=== PATIENT | female | born 1990 | race Caucasian/White ===

== ENCOUNTER → 2016-07-08 | Outpatient (CLI) | payer BC ==
[~2016-07-08] MED LIST: PRENTAB26 PO
== END | disposition home or self-care (01) ==
LOC: C.LABSPEC 17:23
PROVIDERS: ATTEND Obstetrics & Gynecology
DX: Z34.03 Encounter for supervision of normal first pregnancy, third trimester (principal)

== ENCOUNTER 2016-07-17 12:41 | Inpatient (IN) | payer BC ==
[~2016-07-17] VITALS: Ht 160 cm; Wt 90.5 kg
[2016-07-17] MEDS ORDERED: LACTATED RINGER'S 1000ML 1,000 ML IV PRN (14:17)
[2016-07-17] MEDS ORDERED: LACTATED RINGER'S 1000ML 1,000 ML IV SCH (14:17)
[2016-07-17 14:43] LABS: HEMATOCRIT 34.6 % (37-47); MEAN CELL VOLUME 85.4 fL (80-100); MEAN CORPUSCULAR HEMOGLOBIN 28.9 pg (25-34); MEAN CORPUSCULAR HGB CONC 33.8 g/dl (32-36); MEAN PLATELET VOLUME 9.7 fL (7.4-10.4); PLATELET COUNT 258 K/uL (130-400); RED BLOOD COUNT 4.05 M/uL (4.2-5.4); WHITE BLOOD COUNT 10.57 K/uL (4.8-10.8)
[2016-07-17] MEDS ORDERED: EpHEDrine SULFATE INJ 50 MG/ML AMP ONE (15:45)
[2016-07-17] MEDS ORDERED: FENTANYL 2MCG/ML ROPIV 1.25MG/ML 100ML BAG EPI ONE (15:45)
[2016-07-17] MEDS ORDERED: BUPIVACAINE 0.25% 30 ML VIAL ONE (15:45)
[2016-07-17] MEDS ORDERED: FENTANYL CITRATE INJ 50 MCG/1 ML 2 ML VIAL ONE (15:46)
[2016-07-17] MEDS ORDERED: LACTATED RINGER'S 1000ML 500 ML IV PRN (16:34)
[2016-07-17] MEDS ORDERED: FENTANYL 2MCG/ML ROPIV 1.25MG/ML 100ML BAG EPI PRN (16:45)
[2016-07-17] MEDS ORDERED: EpHEDrine SULFATE INJ 50 MG/ML AMP IV PRN (16:45)
[2016-07-17] MEDS ORDERED: NALOXONE HCL INJ 0.4 MG/1 ML VIAL/CARP IV PRN (16:45)
[2016-07-17 17:46] VITALS: Ht 160 cm; Wt 90.5 kg
[2016-07-17] MEDS ORDERED: ACETAMINOPHEN 325 MG TAB PO PRN (22:45)
[2016-07-17] MEDS ORDERED: OXYTOCIN 30 UNITS/500ML NSS IV PRN (22:45)
[2016-07-17] MEDS ORDERED: ACETAMINOPHEN/CODEINE 300/30MG TAB PO PRN (22:45)
[2016-07-17] MEDS ORDERED: BENZOCAINE 20% AER SPR 82.5 GM CAN EXT PRN (22:45)
[2016-07-17] MEDS ORDERED: LANOLIN OINT EXT PRN ×2 (22:45)
[2016-07-17] MEDS ORDERED: SUPERCREAM 0.870 % 15GM JAR EXT PRN (22:45)
[2016-07-18] VITALS (7 sets, daily range): BP systolic 116–142; BP diastolic 68–85; PULSE 82–99; TEMP 36.5–37.3; O2SAT 97
[2016-07-18] MEDS: IBUPROFEN 600 MG TAB PO PRN ×4 (00:33→18:20)
--- NOTE | 2016-07-18 04:34 | Anesthesia Procedure Note ---
Anesthesia Epidural Removal Nt Date & Time Jul 18, 2016 at 04:34 Vital Signs Pain Intensity: 1.0 Vital Signs Past 12 Hours Date Time Temp Pulse Resp B/P Pulse Ox O2 Delivery O2 Flow Rate FiO2 07/18/16 01:50 36.6 99 16 119/70 97 Room Air 07/18/16 01:50 97 Room Air Notes Mental Status: alert / awake / arousable, participated in evaluation Nausea / Vomiting: adequately controlled Pain: adequately controlled Airway Patency, RR, SpO2: stable & adequate BP & HR: stable & adequate Hydration State: stable & adequate Neuraxial Anesthesia: was administered Anesthetic Complications: no major complications apparent, pt satisfied with anesthetic care Epidural: removed without complications, with tip intact
--- NOTE | 2016-07-18 07:02 | Progress Note ---
Subjective Jul 18, 2016. Subjective conversation w/ patient, physical exam Ambulation: ambulating normally Voiding: no voiding problems Passing Gas: Yes Diet Tolerance: Regular Diet Lochia: Small Feeding Type: Breast Feeding Pain: vaginal discomfort (using ibuprofen) Review of Systems Constitutional: No chills, No fever Respiratory: No cough, No shortness of breath Cardiac: No chest pain, No palpitations Objective Vital Signs Date Time Temp Pulse Resp B/P Pulse Ox O2 Delivery O2 Flow Rate FiO2 07/18/16 05:00 36.5 82 16 125/68 97 Room Air 07/18/16 01:50 36.6 99 16 119/70 97 Room Air 07/18/16 01:50 97 Room Air Physical Exam General Appearance: WELL-APPEARING, NO APPARENT DISTRESS Respiratory/Chest: lungs clear, no respiratory distress Cardiovascular: regular rate, rhythm, no murmur Abdomen: non tender, soft Fundus: Firm, Non-Tender, Relation to Umbilicus (at umbilicus) Extremities: non-tender, no calf tenderness Laboratory Results Last 24 Hours Test 07/17/16 14:37 07/18/16 04:44 White Blood Count 10.57 K/uL Red Blood Count 4.05 M/uL Hemoglobin 11.7 g/dL Hematocrit 34.6 % Mean Corpuscular Volume 85.4 fL Mean Corpuscular Hemoglobin 28.9 pg Mean Corpuscular Hemoglobin Concent 33.8 g/dl RDW Standard Deviation 42.5 fL RDW Coefficient of Variation 13.8 % Platelet Count 258 K/uL Mean Platelet Volume 9.7 fL Assessment and Plan Post- Day#: 1 Continue Routine Care: Resident Physician Supervision Note: I interviewed and examined the patient. Discussed with Dr. Goldman and agree with findings and plan as documented in the note. Any exceptions or clarifications are listed here: [None] Documented By: Sadie Guzman s/p Day 1 - vital signs reviewed and wnl - HGB 11.7 yesterday - Blood: O-, GBS-, Rubella immune - Encourage ambulation, encourage breast feeding, and monitor lochia - Patient doing well clinically - CONTINUE ROUTINE POST CARE
--- NOTE | 2016-07-18 07:06 | DELIVERY SUMMARY ---
DATE OF OPERATION: 07/17/2016 The patient is a 26-year-old 1 para 0 white female EDC at 07/30/2016 who had presented with heavy bloody show and dilation of 4 cm after being evaluated at the officer for an elevated blood pressure. Blood pressure remained in the normal range but she had begun to contract in a regular pattern. She then progressed to 5 cm dilated and was admitted. She received epidural analgesia. Membranes were ruptured for clear fluid. She progressed to full dilation and pushed effectively over an intact perineum to deliver a viable male . Mouth and nasopharynx were suctioned on the perineum and the rest of the was delivered without difficulty and placed on the mother's abdomen for further attention and stimulation. Cord was then clamped and cut and the placenta was expressed intact with a 3-vessel cord. The required some extra stimulation and was placed on the baby bed for this to be done. There was then spontaneous crying and the was moving all four limbs. A first degree vaginal laceration was repaired with 3-0 chromic in the usual fashion. Bilateral labial abrasions were not bleeding and not repaired. Estimated blood loss was 300 cc. Mother and infant doing well after delivery. I attest to the content of the Intraoperative Record and any orders documented therein. Any exceptio ns are noted below.
[2016-07-18 07:14] LABS: HEMATOCRIT 27.9 % (37-47)
[2016-07-18] MEDS: DOCUSATE SODIUM 100 MG CAP PO SCH ×2 (08:39→20:21)
[2016-07-18] MEDS: PRENATAL VITAMIN TAB PO SCH (08:39)
[2016-07-18] MEDS: ACETAMINOPHEN/CODEINE 300/30MG TAB PO PRN ×2 (14:28→20:21)
[2016-07-18] MEDS ORDERED: BISACODYL 5 MG TABEC PO SCH (20:00)
--- NOTE | 2016-07-18 20:38 | Discharge Instructions ---
Discharge Instructions Date of Service Jul 18, 2016. Admission Reason for Admission: Check Bp Discharge Discharge Diagnosis / Problem: Spontaneous Vaginal Delivery Discharge Goals Goal(s): Routine recovery after delivery Medications Continue Dispensed Medications: supercream, dermaplast, tucks, lansinoh Activity Recommendations Activity Limitations: per Instructions/Follow-up section . Instructions / Follow-Up Instructions / Follow-Up ACTIVITY RECOMMENDATIONS: * Gradual return to full activity over the next 2-3 weeks. * No lifting - nothing heavier than baby over the next 2-3 weeks. * Do not engage in vigorous exercise, sexual activity or sports until cleared by your physician. * Do not drive or operate any motorized equipment until cleared by your physician. * You may shower/bathe daily. MEDICATIONS: For discomfort or pain, you may use Acetaminophen (Tylenol), Ibuprofen (Advil), or Naproxen (Aleve) following the package directions. For constipation you may use Colace following the package directions. BREAST CARE: If you are not breast feeding: * Wear a supportive bra 24 hours a day for one to two weeks. * Avoid stimulating your breasts and nipples as much as possible during the first few weeks after delivery. * When taking a shower, have the warm water hit your back, not breasts. * When your breasts feel full, apply ice packs. Usually three to four times a day helps ease the discomfort. * Take a mild pain medication (Tylenol / Motrin) when you are uncomfortable. If breast feeding: * Use breast milk to lubricate nipples. Lansinoh cream may be used for sore nipples. You do not need to remove cream prior to breast feeding. If using a different brand of cream, check the label for directions regarding removal of cream prior to nursing. * Wear a supportive bra. * If having problems with breasts or breast feeding, call a exchange underwriting consultant or your health care provider. EPISIOTOMY CARE: After delivery, if you have an episiotomy (stitches), the following steps will ease discomfort and aid healing. * For the first 24 hours after delivery, place ice packs next to your episiotomy to help reduce swelling. * After the first 24 hour-period, sitz baths, either portable or in the tub, are suggested. A shower with a shower arm sprayed over the episiotomy may be comforting. * Emperatriz care should be done after each voiding and bowel movement. Squirt warm water from a plastic bottle over the perineum (region of the body between the anus and urinary opening) and pat dry. * Use Dermoplast to ease discomfort. Shake container. [place] directly over the episiotomy. Place a Tucks on a clean sanitary pad next to your episiotomy. SPECIAL CARE INSTRUCTIONS: When you are discharged from the hospital, it is important for you to follow the instructions listed below: * During the first week at home, you should be able to care for yourself and your baby. In addition, the usual light household activities are encouraged. * Limit your activities to the way you feel. Do not try to clean the house or move furniture. Be sensible. * If you actively engage in sports and have done so up until the time of your delivery, you may resume these activities as soon as you feel able. This may take up to one month or even longer. Use good judgment. * Continue to take your vitamins for at least six weeks after the of your baby. * Your diet need not be limited unless you were on a special diet before your delivery. Breast-feeding mothers need around 2500 calories per day and at least 64-80 ounces of fluid per day (8 to 10 glasses). * You should eat foods from the four major food groups. Crash diets or fad diets are to be avoided. Eating lean meats, fresh fruits and vegetables, low-fat dairy products, high fiber foods and a regular exercise program, will help you get back to your pre- weight without putting your health at risk. * Constipation is sometimes a problem after delivery. Take a mild laxative as needed. If breast feeding, Milk of Magnesia is acceptable to use. You may use a suppository or Fleets enema if no episiotomy. * A daily shower or tub bath is suggested. Be sure to thoroughly and gently dry the perineum. * A bloody vaginal discharge will usually continue until around four weeks post . A small amount of bleeding may continue for as long as six weeks. Vaginal discharge changes from the bright red bleeding after delivery to pink then brownish and finally yellowish-pink before becoming white and disappearing. * Bleeding may increase with activity. Your first period may come in 4-8 weeks. If you are breast feeding, your period may be delayed even longer. * Esperance (sex) can begin whenever both you and your partner feel comfortable and do not have any form of genital infection. It is recommended that you wait at least six weeks for internal and external healing to occur. If you have questions, please talk to your health care practitioner. A condom should be used to prevent infection and . * Foreplay, gentle intercourse and lubrication is very important the first several times to prevent pain. A water-based lubricant such as K-Y jelly or Astroglide may be used. * If you have RH negative blood and your baby is RH positive, you will receive RHOGAM by injection prior to discharge. The nurse will give you a card to keep with you that has the date and place that you received RHOGAM after delivery. * During your care, you had a Rubella screen done to check for the presence of rubella antibodies in your blood. If your test was negative, you will receive a Rubella vaccine prior to discharge. This vaccine may cause a fever, soreness at the injection site and flu-like symptoms. If these symptoms persist, notify your health care practitioner. is not advised for one month after a Rubella vaccine. * Verbalizes understanding of car seat law as reviewed with patient nursing. * Car Seat hand-out given and reviewed with patient by nursing. * Shaken baby information reviewed with patient by nursing. Call you doctor if: * Heavy bleeding (saturating several pads an hour) or passing clots the size of your fist. * A fever >101 degrees F (38.3 degrees C) on two occasions four hours apart and /or chills. * Unusual pain in the pelvic or vaginal areas. * "Baby Blues" lasting longer than two weeks. If you have any questions or concerns, call your health care practitioner at . FOLLOW UP VISIT: * Please call the office at to schedule a 6 week examination. It is important you keep this appointment. It is important for you to make arrangements for either yearly or twice yearly check-ups thereafter. Current Hospital Diet Patient's current hospital diet: Regular OB Diet Discharge Diet Recommended Diet: Regular Diet Pending Studies Studies pending at discharge: no Medical Emergencies . Who to Call and When: Medical Emergencies: If at any time you feel your situation is an emergency, please call 911 immediately. . Non-Emergent Contact Non-Emergency issues call your: Primary Care Provider, Mounter Hand . . "Provider Documentation" section prepared by Khanh Goldman. VTE Core Measure Inpt VTE Proph given/why not?: Treatment not indicated
--- NOTE | 2016-07-19 07:01 | Progress Note ---
Subjective Jul 19, 2016. Subjective conversation w/ patient Ambulation: ambulating normally Voiding: no voiding problems Passing Gas: Yes Diet Tolerance: Regular Diet Lochia: Small Feeding Type: Breast Feeding Review of Systems Constitutional: No chills, No fever Respiratory: No cough, No shortness of breath Cardiac: No chest pain, No palpitations Objective Vital Signs Date Time Temp Pulse Resp B/P Pulse Ox O2 Delivery O2 Flow Rate FiO2 07/18/16 23:40 37.3 85 18 116/70 Room Air 07/18/16 23:40 Room Air 07/18/16 19:30 36.9 96 20 128/81 Room Air 07/18/16 19:30 97 Room Air 07/18/16 17:00 36.6 94 16 136/78 Room Air 07/18/16 16:00 Room Air 07/18/16 11:52 36.7 96 18 142/85 97 Room Air 07/18/16 07:30 Room Air 07/18/16 07:18 36.5 92 16 123/71 97 Room Air Physical Exam General Appearance: WELL-APPEARING, NO APPARENT DISTRESS Respiratory/Chest: lungs clear, no respiratory distress Cardiovascular: regular rate, rhythm, no JVD Abdomen: non tender, soft Fundus: Firm, Non-Tender, Relation to Umbilicus (at the umbilicus) Extremities: non-tender, no calf tenderness Laboratory Results Last 24 Hours Test 07/18/16 07:00 Hemoglobin 9.3 g/dL Hematocrit 27.9 % Assessment and Plan Post- Day#: 2 Continue Routine Care: S/P Day 2 - vital signs reviewed and wnl - HGB 9.3 yesterday - Blood: O-, GBS-, Rubella immune, CF carrier - Encourage ambulation, encourage breast feeding, and monitor lochia - Continue to take ibuprofen for vaginal pain - Patient doing well clinically - Reviewed patient discharge instructions - PATIENT TO BE DISCHARGED HOME TODAY Resident Physician Supervision Note: I interviewed and examined the patient. Discussed with Dr. Goldman and agree with findings and plan as documented in the note. Any exceptions or clarifications are listed here: Baby is Bneg, no Rhogam Documented By: Enrique Restrepo
[2016-07-19] MEDS ORDERED: PRENTAB26 PO (07:36)
[2016-07-19] MEDS: PRENATAL VITAMIN TAB PO SCH (08:11)
[2016-07-19] MEDS: IBUPROFEN 600 MG TAB PO PRN (08:11)
[2016-07-19] MEDS: DOCUSATE SODIUM 100 MG CAP PO SCH (08:11)
[2016-07-19 08:14] VITALS: BP 120/74; PULSE 96; TEMP 36.6
[2016-07-19 14:45] VITALS: BP_DIAS 74; PULSE 96; TEMP 36.6
== END 2016-07-19 14:45 | disposition home or self-care (01) | DRG 775 ==
LOC: C.OPB 12:41 → C.LD 12:41 → C.OPB 14:19 → C.LD 19:07 → C.OBG 07-18 01:02
PROVIDERS: ADMIT Obstetrics & Gynecology; ATTEND Obstetrics & Gynecology
PROC: 0HQ9XZZ Repair Perineum Skin, External Approach (ICD-10-PCS; principal; 2016-07-17)
PROC: 10E0XZZ Delivery of Products of Conception, External Approach (ICD-10-PCS; principal; 2016-07-17)
DX: O70.0 First degree perineal laceration during delivery (principal); Z37.0 Single live birth; Z3A.38 38 weeks gestation of pregnancy

== ENCOUNTER 2017-09-15 12:27 | Inpatient (IN) | payer BC, OTHER ==
[~2017-09-15] VITALS: Ht 162.6 cm; Wt 77.3 kg
[2017-09-15] MEDS ORDERED: SODIUM CHLORIDE 0.9% 1000ML 1,000 ML IV STA (12:42)
--- NOTE | 2017-09-15 12:46 | EMERGENCY ROOM VISIT NOTE ---
History Report prepared by Gisela: Jas Morillo Under the Supervision of: Dr. Wellington Hough D.O. First contact with patient: 12:35 Chief Complaint: ABDOMINAL PAIN Stated Complaint: ABD PAIN, JAUNDICE Nursing Triage Summary: pt reports she has upper gastric pain started 6 months ago happens in middle of night .started yesterday and has been lingering. went to pcp yesterday started on omeprazole, today eyes yellow and urine orange tolds to come to ed for eval of gallbladder History of Present Illness The patient is a 27 year old female who presents to the Emergency Room with complaints of epigastric/right upper quadrant abdominal pain. This has been present for the past 6 months. He notes that over the past 2 days this has been constant. Pain is currently 7 out of 10. Laying on her right side does exacerbate her symptoms. No other remitting factors. She notes that it is slightly worse at night. She was placed on omeprazole but notes no improvement. Her PCP referred her in today as she did notice that her eyes are jaundiced. Patient denies any headaches, change in vision, chest pain, or diarrhea. She does admit to nausea. Source of History: patient Position: abdomen (RUQ) Symptom Intensity: moderate Quality: ache, sharp Timing: constant Modifying Factors (Worsening): other (palpation) Modifying Factors (Relieving): other (laying on right side) Review of Systems See HPI for pertinent positives & negatives. A total of 10 systems reviewed and were otherwise negative. Past Medical & Surgical Medical Problems: (1) 38 weeks gestation of (2) Abdominal pain (3) Elevated blood pressure complicating in third trimester, antepartum (4) Jaundice (5) Normal labor Family History No pertinent family history stated. Social History Smoking Status: Never Smoker Occupation Status: employed Current/Historical Medications Scheduled Control Pills ( Control Pills), 1 TAB PO DAILY Allergies Coded Allergies: No Known Allergies (Unverified , 09/15/17) Physical Exam Vital Signs Date Time Temp Pulse Resp B/P (MAP) Pulse Ox O2 Delivery O2 Flow Rate FiO2 09/15/17 16:49 86 20 139/89 98 09/15/17 16:48 86 20 139/89 98 09/15/17 15:03 98 17 123/93 98 Room Air 09/15/17 13:00 131/87 09/15/17 12:33 37.0 115 18 135/78 97 Room Air Physical Exam GENERAL: Sitting up in bed, alert, well appearing, well nourished, no distress, non-toxic EYE EXAM: normal conjunctiva. PERRL and EOM's grossly intact. Scleral icterus present. OROPHARYNX: no exudate, no erythema, lips, buccal mucosa, and tongue normal and mucous membranes are moist NECK: supple, no nuchal rigidity, no adenopathy, non-tender LUNGS: Clear to auscultation. Normal chest wall mechanics HEART: no murmurs, S1 normal and S2 normal ABDOMEN: abdomen soft, normo-active bowel sounds, no masses, no rebound or guarding. Tender to palpation of the RUQ. BACK: Back is symmetrical on inspection and there is no deformity, no midline tenderness, no CVA tenderness. SKIN: no rashes and no bruising UPPER EXTREMITIES: upper extremities are grossly normal. LOWER EXTREMITIES: No pitting edema. NEURO EXAM: Normal sensorium, cranial nerves II-XII grossly intact, normal speech, no gross weakness of arms, no gross weakness of legs. Medical Decision & Procedures ER Provider Diagnostic Interpretation: Radiology results as stated below per my review and the radiologist's interpretation: GALLBLADDER-ABD LIMITED FINDINGS: Combination of a small gallstones and sludge along the posterior wall of the gallbladder. No abnormal pericholecystic fluid. Common bile duct 5 mm. Liver is uniform in appearance. Pancreas and right kidney are unremarkable. No evidence for hydronephrosis. IMPRESSION: 1. Combination of a small gallstones and sludge along the posterior wall of the gallbladder as well as in the region of the gallbladder neck. 2. Normal caliber bile ducts. 3. Remainder the study is unremarkable. The above report was generated using voice recognition software. It may contain grammatical, syntax or spelling errors. Electronically signed by: Chris Baptiste M.D. 09/15/2017 2:56 PM Laboratory Results 09/15/17 12:48 Red Blood Count 4.98, Mean Corpuscular Volume 87.8, Mean Corpuscular Hemoglobin 31.3, Mean Corpuscular Hemoglobin Concent 35.7, Mean Platelet Volume 9.3, Neutrophils (%) (Auto) 75.0, Lymphocytes (%) (Auto) 16.9, Monocytes (%) (Auto) 4.9, Eosinophils (%) (Auto) 2.7, Basophils (%) (Auto) 0.4, Neutrophils # (Auto) 6.91, Lymphocytes # (Auto) 1.56, Monocytes # (Auto) 0.45, Eosinophils # (Auto) 0.25, Basophils # (Auto) 0.04 09/15/17 12:48 Test 09/15/17 12:45 09/15/17 12:48 09/15/17 16:28 Urine Color DK YELLOW Urine Appearance CLEAR (CLEAR) Urine pH 5.5 (4.5-7.5) Urine Specific Delight 1.016 (1.000-1.030) Urine Protein NEG (NEG) Urine Glucose (UA) NEG (NEG) Urine Ketones NEG (NEG) Urine Occult Blood NEG (NEG) Urine Nitrite POS (NEG) Urine Bilirubin 3+ (NEG) Urine Urobilinogen NEG (NEG) Urine Leukocyte Esterase SMALL (NEG) Urine WBC (Auto) 1-5 /hpf (0-5) Urine RBC (Auto) 0-4 /hpf (0-4) Urine Hyaline Casts (Auto) 1-5 /lpf (0-5) Urine Epithelial Cells (Auto) 10-20 /lpf (0-5) Urine Bacteria (Auto) NEG (NEG) Urine Test NEG (NEG) White Blood Count 9.22 K/uL (4.8-10.8) Red Blood Count 4.98 M/uL (4.2-5.4) Hemoglobin 15.6 g/dL (12.0-16.0) Hematocrit 43.7 % (37-47) Mean Corpuscular Volume 87.8 fL (80-100) Mean Corpuscular Hemoglobin 31.3 pg (25-34) Mean Corpuscular Hemoglobin Concent 35.7 g/dl (32-36) Platelet Count 272 K/uL (130-400) Mean Platelet Volume 9.3 fL (7.4-10.4) Neutrophils (%) (Auto) 75.0 % Lymphocytes (%) (Auto) 16.9 % Monocytes (%) (Auto) 4.9 % Eosinophils (%) (Auto) 2.7 % Basophils (%) (Auto) 0.4 % Neutrophils # (Auto) 6.91 K/uL (1.4-6.5) Lymphocytes # (Auto) 1.56 K/uL (1.2-3.4) Monocytes # (Auto) 0.45 K/uL (0.11-0.59) Eosinophils # (Auto) 0.25 K/uL (0-0.5) Basophils # (Auto) 0.04 K/uL (0-0.2) RDW Standard Deviation 38.1 fL (36.4-46.3) RDW Coefficient of Variation 11.9 % (11.5-14.5) Immature Granulocyte % (Auto) 0.1 % Immature Granulocyte # (Auto) 0.01 K/uL (0.00-0.02) Anion Gap 7.0 mmol/L (3-11) Est Creatinine Clear Calc Drug Dose 93.9 ml/min Estimated GFR () 101.5 Estimated GFR (Non- 87.6 BUN/Creatinine Ratio 7.2 (10-20) Calcium Level 9.1 mg/dl (8.5-10.1) Total Bilirubin 8.8 mg/dl (0.2-1) Direct Bilirubin 6.1 mg/dl (0-0.2) Aspartate Amino Transf (AST/SGOT) 158 U/L (15-37) Alanine Aminotransferase (ALT/SGPT) 225 U/L (12-78) Alkaline Phosphatase 125 U/L (45-117) Total Protein 8.0 gm/dl (6.4-8.2) Albumin 3.8 gm/dl (3.4-5.0) Lipase 244 U/L (73-393) Laboratory results per my review. Medications Administered Medications (Trade) Dose Ordered Sig/Gage Route Start Time Stop Time Status Last Admin Dose Admin Sodium Chloride 1,000 ml @ 999 mls/hr Q1H1M STAT IV 09/15/17 12:42 09/15/17 13:42 DC 09/15/17 12:51 999 MLS/HR ED Course ED COURSE: Vital signs were reviewed and showed tachycardia. The patients medical record was reviewed The above diagnostic studies were performed and reviewed. ED treatments and interventions as stated above. 1242: The patient was evaluated in room A4B. A complete history and physical examination was performed. Ordered Sodium Chloride 1000 ml @ 999 mls/hr IV. 1325: I updated the patient on her test results. 1520: Upon reevaluation, the patient is resting comfortably. I discussed my findings with the patient and she understands and agrees with the treatment plan. Based on the patients age, coexisting illnesses, exam and lab findings the decision to treat as an inpatient was made. The patient remained stable while under my care. The patient will be evaluated for further management. Medical Decision Differential diagnoses includes but is not limited to gastritis, peptic ulcer disease, GERD, gallbladder disease, pancreatitis, small bowel obstruction, acute coronary syndrome, pericarditis, ischemic bowel, irritable bowel disease, irritable bowel syndrome, appendicitis, diverticulitis, malignancy, hernia, urinary tract infection, torsion, /ectopic , perforation, trauma, infectious. Patient is a 27-year-old female who presents the ER for right upper quadrant/ epigastric abdominal pain associated with nausea and jaundice. CBC was unremarkable. BMP was benign as well. Bilirubin along with LFTs were elevated and lipase was normal. UA was unremarkable. was negative. Ultrasound gallbladder shows stones but a normal CBD. Discussed with GI who recommended admission to medicine and possible ERCP tomorrow. Discussed with internal medicine patient will be evaluated for further workup. She was given fluids. I do favor this likely choledocholithiasis or recently passed stone. Medication Reconcilliation Current Medication List: was personally reviewed by me Blood Pressure Screening Patient's blood pressure: Elevated blood pressure Blood pressure disposition: Elevated BP felt to be situational Consults Time Called: 1518 Consulting Physician: Dr. Graeme WICK Returned Call: 1522 We reviewed the patient's case. Dr. Bedolla will consult on the patient. Additional Consults: Time Called: 1525 Consulted Physician: Dr. Spaulding - [facility] Hospitalist Returned Call: 1530 Additional Comments: Dr. Spaulding was made aware of the patient's case. [facility] will evaluate the patient for further management. Impression Primary Impression: Choledocholithiasis Additional Impressions: Transaminitis Elevated bilirubin Scribe Attestation The scribe's documentation has been prepared under my direction and personally reviewed by me in its entirety. I confirm that the note above accurately reflects all work, treatment, procedures, and medical decision making performed by me. Departure Information Dispostion Being Evaluated By Hospitalist Referrals Stephanie Mendiola (PCP) Patient Instructions My [facility] Problem Qualifiers
[2017-09-15 12:58] LABS: BASO % 0.4 %; BASO ABS # 0.04 K/uL (0-0.2); EOS % 2.7 %; EOS ABS # 0.25 K/uL (0-0.5); HEMATOCRIT 43.7 % (37-47); HEMOGLOBIN 15.6 g/dL (12.0-16.0); IG# 0.01 K/uL (0.00-0.02); LYMPH % 16.9 %; LYMPH ABS # 1.56 K/uL (1.2-3.4); MEAN CELL VOLUME 87.8 fL (80-100); MEAN CORPUSCULAR HEMOGLOBIN 31.3 pg (25-34); MEAN CORPUSCULAR HGB CONC 35.7 g/dl (32-36); MEAN PLATELET VOLUME 9.3 fL (7.4-10.4); MONO % 4.9 %; MONO ABS # 0.45 K/uL (0.11-0.59); NEUT ABS # 6.91 K/uL (1.4-6.5); PLATELET COUNT 272 K/uL (130-400); RED CELL DISTRIBUTION WIDTH CV 11.9 % (11.5-14.5); RED CELL DISTRIBUTION WIDTH SD 38.1 fL (36.4-46.3); WHITE BLOOD COUNT 9.22 K/uL (4.8-10.8)
[2017-09-15] MEDS ORDERED: BCPILLS PO (13:17)
[2017-09-15 13:18] LABS: ALBUMIN 3.8 gm/dl (3.4-5.0); CALCIUM 9.1 mg/dl (8.5-10.1); CREATININE 0.89 mg/dl (0.60-1.20); POTASSIUM 3.5 mmol/L (3.5-5.1)
--- NOTE | 2017-09-15 14:58 | DIAGNOSTIC IMAGING REPORT ---
GALLBLADDER-ABD LIMITED CLINICAL HISTORY: ruq abd pain nausea TECHNIQUE: Ultrasound COMPARISON STUDY: None FINDINGS: Combination of a small gallstones and sludge along the posterior wall of the gallbladder. No abnormal pericholecystic fluid. Common bile duct 5 mm. Liver is uniform in appearance. Pancreas and right kidney are unremarkable. No evidence for hydronephrosis. IMPRESSION: 1. Combination of a small gallstones and sludge along the posterior wall of the gallbladder as well as in the region of the gallbladder neck. 2. Normal caliber bile ducts. 3. Remainder the study is unremarkable. The above report was generated using voice recognition software. It may contain grammatical, syntax or spelling errors. Electronically signed by: Chris Baptiste M.D. 09/15/2017 2:56 PM Dictated Date/Time: 09/15/2017 2:55 PM
--- NOTE | 2017-09-15 15:48 | History and Physical ---
History & Physical Date & Time of Service: September 15, 2017 at 15:44 Chief Complaint: Abd Pain, Jaundice Primary Care Physician: Stephanie Mendiola History of Present Illness Source: patient 27 y/o F with no significant medical history. She has had intermittent upper abdominal pain for 6 months. Her pain increased and she became jaundiced over the past few days, prompting her to visit the ER. Intial LFTs are elevated and an initial bilirubin is 8.8. An ultreasound was obtained revealing stones and sludge in the gallbladder without dilated ducts. 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 Smoking Status: Never Smoker Occupational Status: employed Allergies Coded Allergies: No Known Allergies (Unverified , 09/15/17) Home Medications Scheduled Control Pills ( Control Pills), 1 TAB PO DAILY Review of Systems Constitutional: No fever, No chills, No sweats Eyes: No worsening of vision ENT: No hearing loss, No nasal symptoms Respiratory: No cough, No sputum, No wheezing Cardiovascular: No chest pain Abdomen: + pain, + nausea, No vomiting, No diarrhea, No constipation Musculoskeletal: No joint pain Genitourinary - Female: No dysuria Neurologic: No memory loss, No paralysis, No weakness Psychiatric: No depression symptoms Endocrine: No fatigue Hematologic / Lymphatic: No abnormal bleeding/bruising Integumentary: + problem reported (Jaundice), No rash Allergic / Immunologic: No environmental allergies Physical Exam Vital Signs Date Time Temp Pulse Resp B/P (MAP) Pulse Ox O2 Delivery O2 Flow Rate FiO2 09/15/17 15:03 98 17 123/93 98 Room Air 09/15/17 13:00 131/87 09/15/17 12:33 37.0 115 18 135/78 97 Room Air General Appearance: WD/WN, no apparent distress Head: normocephalic Eyes: normal inspection ENT: normal ENT inspection, pharynx normal Neck: supple, no JVD Respiratory/Chest: chest non-tender, lungs clear, normal breath sounds Cardiovascular: regular rate, rhythm, no edema, no gallop Abdomen/GI: normal bowel sounds, soft Back: normal inspection, no CVA tenderness Extremities/Musculoskelatal: normal inspection, no calf tenderness, normal capillary refill, no pedal edema, normal range of motion Neurologic/Psych: clay washer II-XII nml as tested, no motor/sensory deficits, oriented x 3 Skin: normal color Diagnostics Laboratory Results Results Past 24 Hours Test 09/15/17 12:45 09/15/17 12:48 Range/Units Urine Color DK YELLOW Urine Appearance CLEAR CLEAR Urine pH 5.5 4.5-7.5 Urine Specific [place] 1.016 1.000-1.030 Urine Protein NEG NEG Urine Glucose (UA) NEG NEG Urine Ketones NEG NEG Urine Occult Blood NEG NEG Urine Nitrite POS NEG Urine Bilirubin 3+ NEG Urine Urobilinogen NEG NEG Urine Leukocyte Esterase SMALL NEG Urine WBC (Auto) 1-5 0-5 /hpf Urine RBC (Auto) 0-4 0-4 /hpf Urine Hyaline Casts (Auto) 1-5 0-5 /lpf Urine Epithelial Cells (Auto) 10-20 0-5 /lpf Urine Bacteria (Auto) NEG NEG Urine Test NEG NEG White Blood Count 9.22 4.8-10.8 K/uL Red Blood Count 4.98 4.2-5.4 M/uL Hemoglobin 15.6 12.0-16.0 g/dL Hematocrit 43.7 37-47 % Mean Corpuscular Volume 87.8 80-100 fL Mean Corpuscular Hemoglobin 31.3 25-34 pg Mean Corpuscular Hemoglobin Concent 35.7 32-36 g/dl Platelet Count 272 130-400 K/uL Mean Platelet Volume 9.3 7.4-10.4 fL Neutrophils (%) (Auto) 75.0 % Lymphocytes (%) (Auto) 16.9 % Monocytes (%) (Auto) 4.9 % Eosinophils (%) (Auto) 2.7 % Basophils (%) (Auto) 0.4 % Neutrophils # (Auto) 6.91 1.4-6.5 K/uL Lymphocytes # (Auto) 1.56 1.2-3.4 K/uL Monocytes # (Auto) 0.45 0.11-0.59 K/uL Eosinophils # (Auto) 0.25 0-0.5 K/uL Basophils # (Auto) 0.04 0-0.2 K/uL RDW Standard Deviation 38.1 36.4-46.3 fL RDW Coefficient of Variation 11.9 11.5-14.5 % Immature Granulocyte % (Auto) 0.1 % Immature Granulocyte # (Auto) 0.01 0.00-0.02 K/uL Sodium Level 136 136-145 mmol/L Potassium Level 3.5 3.5-5.1 mmol/L Chloride Level 104 98-107 mmol/L Carbon Dioxide Level 25 21-32 mmol/L Anion Gap 7.0 3-11 mmol/L Blood Urea Nitrogen 6 7-18 mg/dl Creatinine 0.89 0.60-1.20 mg/dl Est Creatinine Clear Calc Drug Dose 93.9 ml/min Estimated GFR () 101.5 Estimated GFR (Non- 87.6 BUN/Creatinine Ratio 7.2 10-20 Random Glucose 96 70-99 mg/dl Calcium Level 9.1 8.5-10.1 mg/dl Total Bilirubin 8.8 0.2-1 mg/dl Direct Bilirubin 6.1 0-0.2 mg/dl Aspartate Amino Transf (AST/SGOT) 158 15-37 U/L Alanine Aminotransferase (ALT/SGPT) 225 12-78 U/L Alkaline Phosphatase 125 45-117 U/L Total Protein 8.0 6.4-8.2 gm/dl Albumin 3.8 3.4-5.0 gm/dl Lipase 244 73-393 U/L Diagnostic Radiology 1. Combination of a small gallstones and sludge along the posterior wall of the gallbladder as well as in the region of the gallbladder neck. 2. Normal caliber bile ducts. 3. Remainder the study is unremarkable Impression Assessment and Plan 27 y/o F with no significant medical history. She has had intermittent upper abdominal pain for 6 months. Her pain increased and she became jaundiced over the past few days, prompting her to visit the ER. Initial LFTs are elevated and an initial bilirubin is 8.8. An ultrasound was obtained revealing stones and sludge in the gallbladder without dilated ducts. Pt may have passed a stone or may be currently obstructed despite normal caliber ducts. She will proceed for an MRCP. An ERCP may be scheduled depending on the results. A hep panel is pending by request of the GI service. LFTs will be trended. Pt will be kept NPO - IVF and analgesics provided. Full code - SCDs Total time for this admit including review of labs, meds, imaging, records - discussion with pt and ER attending - 36 min Resuscitation Status VTE Prophylaxis Will order VTE Prophylaxis: Yes
[2017-09-15] MEDS ORDERED: MAGNESIUM HYDROXIDE SUSP 30 ML UDC PO PRN (16:30)
[2017-09-15] MEDS ORDERED: ALUMINUM/MAGNESIUM/SIMETH (MAALOX MAX) 30 ML UDC PO PRN (16:30)
[2017-09-15] MEDS ORDERED: POLYETHYLENE (MIRALAX) 17 GM PACK PO PRN (16:30)
[2017-09-15] MEDS ORDERED: ACETAMINOPHEN 325 MG TAB PO PRN (16:30)
[2017-09-15 17:00] VITALS: BP 126/87; PULSE 101; TEMP 36.4; O2SAT 97; BMI 29.3
[2017-09-15] MEDS: D5NSS + 20MEQ KCL 1,000 ML IV SCH (18:26)
[2017-09-15] MEDS: MoRPHine SULFATE 4 MG/ML 1 ML CARP\\VIAL IV PRN (18:37)
[2017-09-15 23:08] VITALS: BP 136/82; PULSE 73; TEMP 36.8; O2SAT 98
[2017-09-16] VITALS (7 sets, daily range): BP systolic 109–132; BP diastolic 66–84; PULSE 78–87; TEMP 36.5–37.2; O2SAT 95–98
[2017-09-16] MEDS ORDERED: CEFAZOLIN SOD 2000MG/15 ML IV PUSH IV ONE (06:00)
[2017-09-16] MEDS: D5NSS + 20MEQ KCL 1,000 ML IV SCH (06:23)
--- NOTE | 2017-09-16 07:18 | DIAGNOSTIC IMAGING REPORT ---
MRCP HISTORY: 27 years-old Female jaundice acute generalized abdominal pain with nausea and jaundice COMPARISON: Right upper quadrant ultrasound 09/15/2017 TECHNIQUE: MRCP without IV contrast was obtained according to institutional protocol. FINDINGS: The clinical secretary images demonstrate no focal abnormality of the imaged chest or soft tissues. The spleen is normal in size. Suggested renal sinus cyst of the superior pole right kidney measures 7 mm. Kidneys are otherwise unremarkable. Pancreas, bowel, aorta and IVC also appear to be within normal limits. No adenopathy or free fluid. There are multiple layering gallstones within the gallbladder lumen. Gallbladder measures up to 6.2 cm in length. Common bile duct is normal, 3 mm. No gallbladder wall thickening or pericholecystic fluid. No biliary filling defects or intrahepatic biliary ductal dilation. No pancreatic ductal dilation or evidence of pancreatic divisum. The bones and soft tissues appear grossly unremarkable. IMPRESSION: 1. Cholelithiasis without evidence of acute cholecystitis. 2. Normal common bile duct without evidence of intrahepatic biliary ductal dilation or biliary tree filling defects. The above report was generated using voice recognition software. It may contain grammatical, syntax or spelling errors. Electronically signed by: Elio Villanueva M.D. 09/16/2017 7:16 AM Dictated Date/Time: 09/16/2017 7:12 AM
[2017-09-16 08:50] LABS: ALBUMIN 3.1 gm/dl (3.4-5.0); TOTAL PROTEIN 6.5 gm/dl (6.4-8.2)
--- NOTE | 2017-09-16 09:14 | Gastrointestinal Consultation ---
Gastrointestinal Consultation Date of Consultation: September 16, 2017 Attending Physician: Jasson Consulting Physician: Josh Reason for Consultation: jaundice, gallstones History of Present Illness Patient is a 27 year old female with no past medical history admitted through the ED for jaundice. Pt was seen and evaluated, chart reviewed. Family is at bedside. 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 Sharp, intermittent, worse after PO intake. With mild nausea, no vomiting. Over the past 72 hours, this pain has become constant explained as a pressure and sharp sensation at the same time. Noted dark urine, light stools and eyes turning yellow, become concerned. Today, has some improvement of her abdominal pain. Denies recent travel, new medications, tylenol, ETOH. No nausea, vomiting. No fever, chills, CP, SOB. MRCP 09/15/17: Cholelithiasis without evidence of acute cholecystitis. Normal common bile duct without evidence of intrahepatic biliary ductaldilation or biliary tree filling defects. RUQ 09/15/17: Combination of a small gallstones and sludge along the posterior wall of thegallbladder as well as in the region of the gallbladder neck. Normal caliber bile ducts. Remainder the study is unremarkable. Past Medical/Surgical History Medical Problems: (1) Choledocholithiasis Status: Acute (2) Elevated bilirubin Status: Acute (3) Transaminitis Status: Acute Past Medical History: none Past Surgical History: none Social History Smoking Status: Never Smoker Occupation Status: employed Allergies Coded Allergies: No Known Allergies (Unverified , 09/15/17) Current Medications Home Meds and Scripts Medications Dose Route/Sig Max Daily Dose Days Date Category Control Pills (Miscellaneous) Tab 1 Tab PO DAILY 09/15/17 Reported Review of Systems Constitutional: No fever, No chills Respiratory: No cough, No shortness of breath Cardiac: No chest pain, No edema Abdomen: + pain, No nausea, No vomiting, No diarrhea, No constipation, No GI bleeding Physical Exam Date Time Temp Pulse Resp B/P (MAP) Pulse Ox O2 Delivery O2 Flow Rate FiO2 09/16/17 07:39 37.2 81 16 126/84 (98) 98 Room Air 09/16/17 00:10 98 Room Air 09/15/17 23:08 36.8 73 16 136/82 (100) 98 Room Air 09/15/17 17:00 36.4 101 16 126/87 Room Air 09/15/17 17:00 36.4 101 16 126/87 (100) 97 Room Air 09/15/17 16:49 86 20 139/89 98 09/15/17 16:48 86 20 139/89 98 09/15/17 15:03 98 17 123/93 98 Room Air 09/15/17 13:00 131/87 09/15/17 12:33 37.0 115 18 135/78 97 Room Air General Appearance: no apparent distress Eyes: PERRL ENT: hearing grossly normal Neck: supple, trachea midline Respiratory/Chest: lungs clear, normal breath sounds, no respiratory distress, no accessory muscle use Cardiovascular: regular rate, rhythm, no edema, no gallop, no JVD Abdomen: normal bowel sounds, soft, no organomegaly, no pulsatile mass, + tenderness (upper abd pain) Neurologic/Psych: alert, normal mood/affect, oriented x 3 Skin: normal color, no jaundice, warm/dry, no rash Laboratory Results Last 24 Hours Test 09/15/17 12:45 09/15/17 12:48 09/15/17 16:28 09/16/17 07:39 Urine Color DK YELLOW Urine Appearance CLEAR Urine pH 5.5 Urine Specific [place] 1.016 Urine Protein NEG Urine Glucose (UA) NEG Urine Ketones NEG Urine Occult Blood NEG Urine Nitrite POS Urine Bilirubin 3+ Urine Urobilinogen NEG Urine Leukocyte Esterase SMALL Urine WBC (Auto) 1-5 /hpf Urine RBC (Auto) 0-4 /hpf Urine Hyaline Casts (Auto) 1-5 /lpf Urine Epithelial Cells (Auto) 10-20 /lpf Urine Bacteria (Auto) NEG Urine Test NEG White Blood Count 9.22 K/uL Red Blood Count 4.98 M/uL Hemoglobin 15.6 g/dL Hematocrit 43.7 % Mean Corpuscular Volume 87.8 fL Mean Corpuscular Hemoglobin 31.3 pg Mean Corpuscular Hemoglobin Concent 35.7 g/dl Platelet Count 272 K/uL Mean Platelet Volume 9.3 fL Neutrophils (%) (Auto) 75.0 % Lymphocytes (%) (Auto) 16.9 % Monocytes (%) (Auto) 4.9 % Eosinophils (%) (Auto) 2.7 % Basophils (%) (Auto) 0.4 % Neutrophils # (Auto) 6.91 K/uL Lymphocytes # (Auto) 1.56 K/uL Monocytes # (Auto) 0.45 K/uL Eosinophils # (Auto) 0.25 K/uL Basophils # (Auto) 0.04 K/uL RDW Standard Deviation 38.1 fL RDW Coefficient of Variation 11.9 % Immature Granulocyte % (Auto) 0.1 % Immature Granulocyte # (Auto) 0.01 K/uL Sodium Level 136 mmol/L Potassium Level 3.5 mmol/L Chloride Level 104 mmol/L Carbon Dioxide Level 25 mmol/L Anion Gap 7.0 mmol/L Blood Urea Nitrogen 6 mg/dl Creatinine 0.89 mg/dl Est Creatinine Clear Calc Drug Dose 93.9 ml/min Estimated GFR () 101.5 Estimated GFR (Non- 87.6 BUN/Creatinine Ratio 7.2 Random Glucose 96 mg/dl Calcium Level 9.1 mg/dl Total Bilirubin 8.8 mg/dl 3.5 mg/dl Direct Bilirubin 6.1 mg/dl 1.9 mg/dl Aspartate Amino Transf (AST/SGOT) 158 U/L 94 U/L Alanine Aminotransferase (ALT/SGPT) 225 U/L 156 U/L Alkaline Phosphatase 125 U/L 102 U/L Total Protein 8.0 gm/dl 6.5 gm/dl Albumin 3.8 gm/dl 3.1 gm/dl Lipase 244 U/L Acetaminophen Level ug/ml Test 09/16/17 08:55 Impression Patient is a 27 year old female without any medical history with colicky RUQ pain intermittent x 6 months, constant over the past 72 hours with mild nausea, no vomiting. RUQ US and MRCP with evidence of gallstones, no evidence of biliary dilation or CBD stone. On arrival TB 8.8 this AM TB improved to 3.5 w/ improving transaminases. She likely passed a CBD stone. Plan - NPO - ? EUS timing to be determined - No role for ERCP - improving LFTs - pain improving - MRCP negative - Daily LFTs - Consult general surgery - Cholecystectomy - Please call with any questions or concerns. I have seen and examined the patient with EMMA Lowe whose note reflects our findings and plan. Much improved this AM. Labs suggest that stone has passed. Wants to go home. She needs to have her gallbladder removed. MRCP without evidence of choledocholithiasis or biliary dilation. Can arrange EUS here [facility] if requested by surgery or as an outpatient. Alternatively, can have evonne and IOC. Ashley Moreno, DO
[2017-09-16 09:25] LABS: HEMATOCRIT 38.8 % (37-47); HEMOGLOBIN 13.5 g/dL (12.0-16.0); MEAN CELL VOLUME 89.2 fL (80-100); MEAN CORPUSCULAR HGB CONC 34.8 g/dl (32-36); MEAN PLATELET VOLUME 9.3 fL (7.4-10.4); PLATELET COUNT 232 K/uL (130-400); WHITE BLOOD COUNT 5.25 K/uL (4.8-10.8)
[2017-09-16 09:46] LABS: CALCIUM 8.3 mg/dl (8.5-10.1); CREATININE 0.73 mg/dl (0.60-1.20); POTASSIUM 3.8 mmol/L (3.5-5.1)
--- NOTE | 2017-09-16 11:02 | Surgery Consultation ---
Consultation Date of Consultation: September 16, 2017. Attending Physician: Ish Spaulding M.D. History of Present Illness Patient is a 27 year old female with no past medical history admitted through the ED for jaundice. Pt was seen and evaluated, chart reviewed. Family is at bedside. 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 Sharp, intermittent, worse after PO intake. With mild nausea, no vomiting. Over the past 72 hours, this pain has become constant explained as a pressure and sharp sensation at the same time. Noted dark urine, light stools and eyes turning yellow, become concerned. Today, has some improvement of her abdominal pain. Denies recent travel, new medications, tylenol, ETOH. No nausea, vomiting. No fever, chills, CP, SOB. I saw pt at bedside, and reviewed pt's H/P with pt, pt is still have RUQ pain, some nausea, no vomiting, LFT is better, no jaundice, pt denies fever. pt wants to do cholecystectomy. Past Medical/Surgical History Medical Problems: (1) Choledocholithiasis Status: Acute (2) Elevated bilirubin Status: Acute (3) Transaminitis Status: Acute Social History Smoking Status: Never Smoker Smokeless Tobacco Use: No Alcohol Use: none Drug Use: none Occupation Status: employed Allergies Coded Allergies: No Known Allergies (Unverified , 09/15/17) Home Medications Scheduled Control Pills ( Control Pills), 1 TAB PO DAILY Current Inpatient Medications Current Inpatient Medications Medications (Trade) Dose Ordered Sig/Gage Route Start Time Stop Time Status Last Admin Dose Admin Acetaminophen (Tylenol Tab) 650 mg Q4H PRN PO 09/15/17 16:30 10/15/17 16:29 Al Hydrox/Mg Hydrox/Simethicone (Maalox Max Susp) 15 ml Q4H PRN PO 09/15/17 16:30 10/15/17 16:29 Magnesium Hydroxide (Milk Of Magnesia Susp) 30 ml Q6H PRN PO 09/15/17 16:30 10/15/17 16:29 Polyethylene (Miralax Powder Packet) 17 gm DAILY PRN PO 09/15/17 16:30 10/15/17 16:29 Ondansetron HCl (Zofran Inj) 4 mg Q6H PRN IV 09/15/17 16:30 10/15/17 16:29 Morphine Sulfate (MoRPHine SULFATE INJ) 2 mg Q3H PRN IV 09/15/17 16:30 09/29/17 16:29 09/15/17 18:37 2 MG Potassium Chloride/Dextrose/ Sod Cl 1,000 ml @ 100 mls/hr Q10H IV 09/15/17 18:00 09/16/17 13:59 09/16/17 06:23 100 MLS/HR Review of Systems Constitutional: No fever, No chills, No sweats, No weight loss, No weakness, No fatigue, No problem reported Eyes: No worsening of vision, No eye pain, No redness, No discharge, No diplopia, No problem reported ENT: No hearing loss, No unusual epistaxis, No nasal symptoms, No sore throat, No tinnitus, No dental problems, No trouble swallowing, No problem reported Respiratory: No cough, No sputum, No wheezing, No shortness of breath, No dyspnea on exertion, No dyspnea at rest, No hemoptysis, No problem reported Cardiovascular: No chest pain, No orthopnea, No PND, No edema, No claudication , No palpitations, No problem reported Abdomen: + pain, + nausea Musculoskeletal: No joint pain, No muscle pain, No swelling, No calf pain, No problem reported Genitourinary - Female: No dysuria, No urinary frequency, No urinary urgency, No urinary incontinence, No urinary retention, No hematuria, No dysmenorrhea, No menorrhagia, No metrorrhagia, No rash, No vaginal bleeding, No vaginal discharge, No vaginal itching, No vulvodynia, No , No problem reported Neurologic: No memory loss, No paralysis, No weakness, No numbness/tingling, No vertigo, No balance problems, No problem reported Psychiatric: No depression symptoms, No anhedonism, No anxiety, No insomnia, No substance abuse, No problem reported Endocrine: No fatigue, No excessive thirst, No excessive urination, No problem reported Integumentary: No rash, No itch, No new/changing skin lesions, No color change , No bleeding, No problem reported Allergic / Immunologic: No environmental allergies, No seasonal allergies, No pet sensitivities, No food allergies, No hives, No frequent infections, No poor healing, No prolonged convalescence, No problem reported Physical Exam Date Time Temp Pulse Resp B/P (MAP) Pulse Ox O2 Delivery O2 Flow Rate FiO2 09/16/17 07:50 Room Air 09/16/17 07:39 37.2 81 16 126/84 (98) 98 Room Air 09/16/17 00:10 98 Room Air 09/15/17 23:08 36.8 73 16 136/82 (100) 98 Room Air 09/15/17 17:00 36.4 101 16 126/87 Room Air 09/15/17 17:00 36.4 101 16 126/87 (100) 97 Room Air 09/15/17 16:49 86 20 139/89 98 09/15/17 16:48 86 20 139/89 98 09/15/17 15:03 98 17 123/93 98 Room Air 09/15/17 13:00 131/87 09/15/17 12:33 37.0 115 18 135/78 97 Room Air General Appearance: WD/WN, no apparent distress Head: normocephalic Eyes: normal inspection ENT: normal ENT inspection Neck: supple, thyroid normal Respiratory/Chest: chest non-tender, lungs clear, normal breath sounds, no respiratory distress Cardiovascular: regular rate, rhythm, no edema, no gallop, no JVD, no murmur Abdomen/GI: normal bowel sounds, non tender, soft, no organomegaly, no pulsatile mass, + tenderness (at RUQ, no rebound pain) Extremities/Musculoskelatal: normal inspection, no calf tenderness, normal capillary refill Neurologic/Psych: no motor/sensory deficits, alert, normal mood/affect, oriented x 3 Skin: normal color, warm/dry, no rash Laboratory Results Last 24 Hours Test 09/15/17 12:45 09/15/17 12:48 09/15/17 16:28 09/16/17 07:39 Urine Color DK YELLOW Urine Appearance CLEAR Urine pH 5.5 Urine Specific [place] 1.016 Urine Protein NEG Urine Glucose (UA) NEG Urine Ketones NEG Urine Occult Blood NEG Urine Nitrite POS Urine Bilirubin 3+ Urine Urobilinogen NEG Urine Leukocyte Esterase SMALL Urine WBC (Auto) 1-5 /hpf Urine RBC (Auto) 0-4 /hpf Urine Hyaline Casts (Auto) 1-5 /lpf Urine Epithelial Cells (Auto) 10-20 /lpf Urine Bacteria (Auto) NEG Urine Test NEG White Blood Count 9.22 K/uL Red Blood Count 4.98 M/uL Hemoglobin 15.6 g/dL Hematocrit 43.7 % Mean Corpuscular Volume 87.8 fL Mean Corpuscular Hemoglobin 31.3 pg Mean Corpuscular Hemoglobin Concent 35.7 g/dl Platelet Count 272 K/uL Mean Platelet Volume 9.3 fL Neutrophils (%) (Auto) 75.0 % Lymphocytes (%) (Auto) 16.9 % Monocytes (%) (Auto) 4.9 % Eosinophils (%) (Auto) 2.7 % Basophils (%) (Auto) 0.4 % Neutrophils # (Auto) 6.91 K/uL Lymphocytes # (Auto) 1.56 K/uL Monocytes # (Auto) 0.45 K/uL Eosinophils # (Auto) 0.25 K/uL Basophils # (Auto) 0.04 K/uL RDW Standard Deviation 38.1 fL RDW Coefficient of Variation 11.9 % Immature Granulocyte % (Auto) 0.1 % Immature Granulocyte # (Auto) 0.01 K/uL Sodium Level 136 mmol/L 141 mmol/L Potassium Level 3.5 mmol/L 3.8 mmol/L Chloride Level 104 mmol/L 110 mmol/L Carbon Dioxide Level 25 mmol/L 24 mmol/L Anion Gap 7.0 mmol/L 7.0 mmol/L Blood Urea Nitrogen 6 mg/dl 5 mg/dl Creatinine 0.89 mg/dl 0.73 mg/dl Est Creatinine Clear Calc Drug Dose 93.9 ml/min 114.5 ml/min Estimated GFR () 101.5 129.0 Estimated GFR (Non- 87.6 111.3 BUN/Creatinine Ratio 7.2 6.8 Random Glucose 96 mg/dl 95 mg/dl Calcium Level 9.1 mg/dl 8.3 mg/dl Total Bilirubin 8.8 mg/dl 3.5 mg/dl Direct Bilirubin 6.1 mg/dl 1.9 mg/dl Aspartate Amino Transf (AST/SGOT) 158 U/L 94 U/L Alanine Aminotransferase (ALT/SGPT) 225 U/L 156 U/L Alkaline Phosphatase 125 U/L 102 U/L Total Protein 8.0 gm/dl 6.5 gm/dl Albumin 3.8 gm/dl 3.1 gm/dl Lipase 244 U/L Acetaminophen Level ug/ml Test 09/16/17 07:43 White Blood Count 5.25 K/uL Red Blood Count 4.35 M/uL Hemoglobin 13.5 g/dL Hematocrit 38.8 % Mean Corpuscular Volume 89.2 fL Mean Corpuscular Hemoglobin 31.0 pg Mean Corpuscular Hemoglobin Concent 34.8 g/dl RDW Standard Deviation 39.0 fL RDW Coefficient of Variation 12.0 % Platelet Count 232 K/uL Mean Platelet Volume 9.3 fL Assessment & Plan MRCP 09/15/17: Cholelithiasis without evidence of acute cholecystitis. Normal common bile duct without evidence of intrahepatic biliary ductaldilation or biliary tree filling defects. RUQ 09/15/17: Combination of a small gallstones and sludge along the posterior wall of the gallbladder as well as in the region of the gallbladder neck. Normal caliber bile ducts. Remainder the study is unremarkable. Assessment: pt is a 27 year old female who was admitted to hospital for RUQ pain and jaundice, now pt is still have some RUQ pain, T bili down to 1.9 from 6. Plan, I recommend to do laparoscopic cholecystectomy, possible open or cholangiogram, D/W benefits, risk sand alternatives of the procedure, the risks - infection, bleeding, injury CBD, bowel, may need ERCP, pt understood, she agrees with the surgery, I answered all questions,
[2017-09-16] MEDS ORDERED: ONDANSETRON INJ 2 MG/ML 2 ML VIAL ONE (12:32)
[2017-09-16] MEDS ORDERED: DEXAMETHASONE SOD INJ 4 MG/ML VIAL ONE (12:32)
[2017-09-16] MEDS ORDERED: FENTANYL CITRATE INJ 50 MCG/1 ML 2 ML VIAL ONE ×4 (12:32→18:30)
[2017-09-16] MEDS ORDERED: LIDOCAINE HCL 2% 2 ML VIAL (20MG/ML) ONE (12:32)
[2017-09-16] MEDS ORDERED: PROPOFOL IV EMULSION 10 MG/ML 20 ML VIAL ONE (12:32)
[2017-09-16] MEDS: MoRPHine SULFATE 4 MG/ML 1 ML CARP\\VIAL IV PRN ×3 (12:53→22:40)
--- NOTE | 2017-09-16 12:55 | Hospitalist Progress Note ---
Hospitalist Progress Note Date of Service September 16, 2017. (Anastasia Randolph PA-C) Subjective Pt evaluation today including: conversation w/ patient, physical exam, chart review, lab review, review of studies, review of inpatient medication list Pain: 5/10 sharp RUQ pain PO Intake: NPO Voiding: no voiding problems The patient complains of a 5/10 sharp RUQ currently that is worse with movement , deep breaths, and palpation. She states this is much improved from when she was admitted, however. She complains of intermittent nausea but denies vomiting. She is being kept NPO. She denies any other complaints currently. The patient denies fevers, chills, sweats, chest pain, palpitations, claudication, cough, wheezing, shortness of breath, vomiting, dysuria, hematuria , urinary retention, paralysis, weakness, numbness and tingling. Additional Comments: See HPI for pertinent positives and negatives. All other systems reviewed and negative. (Anastasia Randolph PA-C) Objective Vital Signs Date Time Temp Pulse Resp B/P (MAP) Pulse Ox O2 Delivery O2 Flow Rate FiO2 09/16/17 07:50 Room Air 09/16/17 07:39 37.2 81 16 126/84 (98) 98 Room Air 09/16/17 00:10 98 Room Air 09/15/17 23:08 36.8 73 16 136/82 (100) 98 Room Air 09/15/17 17:00 36.4 101 16 126/87 Room Air 09/15/17 17:00 36.4 101 16 126/87 (100) 97 Room Air 09/15/17 16:49 86 20 139/89 98 09/15/17 16:48 86 20 139/89 98 09/15/17 15:03 98 17 123/93 98 Room Air 09/15/17 13:00 131/87 (Anastasia Randolph PA-C) Physical Exam Notes: General appearance: Well-developed, well-nourished, no apparent distress Head: Normocephalic, atraumatic Eyes: Normal inspection, PERRL, EOMI ENT: Normal ENT inspection, hearing grossly normal, pharynx normal Neck: Supple, no JVD, trachea midline Respiratory/Chest: Lungs clear to auscultation, normal breath sounds, no respiratory distress Cardiovascular: Regular rate & rhythm, no gallop, no murmur Abdomen/GI: +RUQ TTP. Normal bowel sounds, soft Extremities/Musculoskeletal: Normal inspection, no calf tenderness, no pedal edema Neurological/Psych: Alert, normal mood/affect, oriented x 3 Skin: Normal color, warm/dry, no rash (Anastasia Randolph ., JAIRON) Laboratory Results Last 24 Hours Test 09/15/17 12:45 09/15/17 12:48 09/15/17 16:28 09/16/17 07:39 Urine Color DK YELLOW Urine Appearance CLEAR Urine pH 5.5 Urine Specific [place] 1.016 Urine Protein NEG Urine Glucose (UA) NEG Urine Ketones NEG Urine Occult Blood NEG Urine Nitrite POS Urine Bilirubin 3+ Urine Urobilinogen NEG Urine Leukocyte Esterase SMALL Urine WBC (Auto) 1-5 /hpf Urine RBC (Auto) 0-4 /hpf Urine Hyaline Casts (Auto) 1-5 /lpf Urine Epithelial Cells (Auto) 10-20 /lpf Urine Bacteria (Auto) NEG Urine Test NEG White Blood Count 9.22 K/uL Red Blood Count 4.98 M/uL Hemoglobin 15.6 g/dL Hematocrit 43.7 % Mean Corpuscular Volume 87.8 fL Mean Corpuscular Hemoglobin 31.3 pg Mean Corpuscular Hemoglobin Concent 35.7 g/dl Platelet Count 272 K/uL Mean Platelet Volume 9.3 fL Neutrophils (%) (Auto) 75.0 % Lymphocytes (%) (Auto) 16.9 % Monocytes (%) (Auto) 4.9 % Eosinophils (%) (Auto) 2.7 % Basophils (%) (Auto) 0.4 % Neutrophils # (Auto) 6.91 K/uL Lymphocytes # (Auto) 1.56 K/uL Monocytes # (Auto) 0.45 K/uL Eosinophils # (Auto) 0.25 K/uL Basophils # (Auto) 0.04 K/uL RDW Standard Deviation 38.1 fL RDW Coefficient of Variation 11.9 % Immature Granulocyte % (Auto) 0.1 % Immature Granulocyte # (Auto) 0.01 K/uL Sodium Level 136 mmol/L 141 mmol/L Potassium Level 3.5 mmol/L 3.8 mmol/L Chloride Level 104 mmol/L 110 mmol/L Carbon Dioxide Level 25 mmol/L 24 mmol/L Anion Gap 7.0 mmol/L 7.0 mmol/L Blood Urea Nitrogen 6 mg/dl 5 mg/dl Creatinine 0.89 mg/dl 0.73 mg/dl Est Creatinine Clear Calc Drug Dose 93.9 ml/min 114.5 ml/min Estimated GFR () 101.5 129.0 Estimated GFR (Non- 87.6 111.3 BUN/Creatinine Ratio 7.2 6.8 Random Glucose 96 mg/dl 95 mg/dl Calcium Level 9.1 mg/dl 8.3 mg/dl Total Bilirubin 8.8 mg/dl 3.5 mg/dl Direct Bilirubin 6.1 mg/dl 1.9 mg/dl Aspartate Amino Transf (AST/SGOT) 158 U/L 94 U/L Alanine Aminotransferase (ALT/SGPT) 225 U/L 156 U/L Alkaline Phosphatase 125 U/L 102 U/L Total Protein 8.0 gm/dl 6.5 gm/dl Albumin 3.8 gm/dl 3.1 gm/dl Lipase 244 U/L Acetaminophen Level ug/ml Test 09/16/17 07:43 White Blood Count 5.25 K/uL Red Blood Count 4.35 M/uL Hemoglobin 13.5 g/dL Hematocrit 38.8 % Mean Corpuscular Volume 89.2 fL Mean Corpuscular Hemoglobin 31.0 pg Mean Corpuscular Hemoglobin Concent 34.8 g/dl RDW Standard Deviation 39.0 fL RDW Coefficient of Variation 12.0 % Platelet Count 232 K/uL Mean Platelet Volume 9.3 fL (Anastasia Randolph, ALEXANDREA-C) Diagnostic Results Reviewed the following studies and agree with interpretation as follows: MRCP HISTORY: 27 years-old Female jaundice acute generalized abdominal pain with nausea and jaundice COMPARISON: Right upper quadrant ultrasound 09/15/2017 TECHNIQUE: MRCP without IV contrast was obtained according to institutional protocol. FINDINGS: The lunchroom worker images demonstrate no focal abnormality of the imaged chest or soft tissues. The spleen is normal in size. Suggested renal sinus cyst of the superior pole right kidney measures 7 mm. Kidneys are otherwise unremarkable. Pancreas, bowel, aorta and IVC also appear to be within normal limits. No adenopathy or free fluid. There are multiple layering gallstones within the gallbladder lumen. Gallbladder measures up to 6.2 cm in length. Common bile duct is normal, 3 mm. No gallbladder wall thickening or pericholecystic fluid. No biliary filling defects or intrahepatic biliary ductal dilation. No pancreatic ductal dilation or evidence of pancreatic divisum. The bones and soft tissues appear grossly unremarkable. IMPRESSION: 1. Cholelithiasis without evidence of acute cholecystitis. 2. Normal common bile duct without evidence of intrahepatic biliary ductal dilation or biliary tree filling defects. (Anastasia Randolph ., ERINC) Assessment and Plan 27 y/o female with no significant past medical history who presents with intermittent upper abdominal pain x 6 months, with acute worsening over the last 72 hours with jaundice and nausea. LFTs significantly elevated on admission with total bilirubin of 8.8. Abdominal pain, jaundice--resolving. Likely had passed stone -Admit to med/surg -Gallbladder ultrasound shows small gallbladder stones and sludge. Normal caliber bile ducts -MRCP shows gallstones. No evidence of acute cholecystitis. Normal common bile duct. No intrahepatic biliary duct dilation or biliary tree filling defects. -GI consulted, appreciate recs: No indication for ERCP. Monitor LFTs. Consult general surgery for cholecystectomy. -General surgery consulted, appreciate recs: Plan for lap evonne this afternoon. -NPO -D5NSS + 20 mEq KCl at 100 cc/hr -Morphine 2 mg IV q3h prn pain -LFTs much improved this morning. Total bilirubin 3.5 on 09/16, down form 8.8. Direct bilirubin 1.9 on 09/16, down from 61. AST, ALT, alk phos all trending down DVT prophylaxis -Hold chemical ppx for surgery today -SCDs Code Status -Level I, FULL RESUSCITATION STATUS (Anastasia Randolph ., ALEXANDREA-C) Supervising Note Dr. Munguia I performed a history and physical examination on the patient. I reviewed above note and agree with it. I discussed plan with APC and patient. During my face to face encounter with the patient, I answered all of the patient's questions. Patient seen prior to procedure. Plan is to monitor at least overnight. will continue current pain management. (Kevin Munguia M.D.)
[2017-09-16] MEDS ORDERED: MIDAZOLAM HCL 1 MG/ML 2ML VIAL ONE (12:57)
--- NOTE | 2017-09-16 15:43 | History & Physical Bridge Note ---
H&P Re-Evaluation Bridge Note: I have examined the patient, reviewed the History & Physical and in the interval since the performance of the History & Physical I have noted the following changes of clinical significance: No changes noted
[2017-09-16] MEDS ORDERED: CEFAZOLIN SOD 2000MG/15 ML IV PUSH ONE (15:46)
[2017-09-16] MEDS ORDERED: KETOROLAC TROMETHAMINE 30 MG/ML VIAL IV. PRN (16:00)
[2017-09-16] MEDS ORDERED: HYDROmorphone INJ 0.5 MG/0.5 ML SYR IV PRN (16:00)
[2017-09-16] MEDS ORDERED: ONDANSETRON INJ 2 MG/ML 2 ML VIAL IV PRN (16:00)
[2017-09-16] MEDS ORDERED: ATROPINE SULFATE 0.1 MG/ML 5ML SYR IV PRN (16:00)
[2017-09-16] MEDS ORDERED: LIDOCAINE HCL 1% 20 ML VIAL ONE (16:04)
[2017-09-16] MEDS ORDERED: BUPIVACAINE 0.5 % 5 MG/1 ML MPF 30ML VIAL ONE (16:05)
[2017-09-16] MEDS ORDERED: BACITRACIN OINT 15 GM TUBE ONE (16:05)
[2017-09-16] MEDS ORDERED: NEOSTIGMINE METHYLSULFATE 5 MG/5 ML SYR ONE (17:11)
[2017-09-16] MEDS ORDERED: ROCURONIUM BROMIDE 10 MG/ML 5 ML VIAL ONE (17:11)
[2017-09-16] MEDS ORDERED: GLYCOPYRROLATE INJ 0.2 MG/ML VIAL ONE (17:11)
[2017-09-16] MEDS ORDERED: PHENYLEPHRINE 100MCG/ML 5ML SYR ONE (17:11)
--- NOTE | 2017-09-16 18:16 | [facility] Post Operative Brief Note ---
Immediate Operative Summary Operative Date September 16, 2017. Pre-Operative Diagnosis Right Upper Quadrant Pain, Jaundice, Cholelithiasis, acute cholecystitis Post-Operative Diagnosis same Procedure(s) Performed laparoscopic cholecystectomy Surgeon Dr. 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
[2017-09-16] MEDS ORDERED: KETOROLAC TROMETHAMINE 30 MG/ML VIAL ONE (18:23)
--- NOTE | 2017-09-16 19:01 | Anesthesiology Progress Note ---
Anesthesia Post Op Note Date & Time September 16, 2017 at 19:00 Vital Signs Pain Intensity: 0 Vital Signs Past 12 Hours Date Time Temp Pulse Resp B/P (MAP) Pulse Ox O2 Delivery O2 Flow Rate FiO2 09/16/17 18:46 140/84 09/16/17 18:44 89 17 100 09/16/17 18:44 89 17 09/16/17 18:41 136/79 09/16/17 18:39 109 15 09/16/17 18:39 109 15 100 09/16/17 18:35 138/93 09/16/17 18:34 118 21 09/16/17 18:34 118 21 100 09/16/17 18:30 143/85 09/16/17 18:29 36.6 94 12 143/85 95 Oxymask 10 09/16/17 18:29 128 13 143/96 100 09/16/17 18:29 127 13 09/16/17 07:50 Room Air 09/16/17 07:39 37.2 81 16 126/84 (98) 98 Room Air Notes Mental Status: alert / awake / arousable, participated in evaluation Pt Amnestic to Procedure: Yes Nausea / Vomiting: adequately controlled Pain: adequately controlled Airway Patency, RR, SpO2: stable & adequate BP & HR: stable & adequate Hydration State: stable & adequate Anesthetic Complications: no major complications apparent
[2017-09-16] MEDS: ONDANSETRON INJ 2 MG/ML 2 ML VIAL IV PRN (19:38)
[2017-09-16] MEDS ORDERED: SODIUM CHLORIDE 0.9% 1000ML 1,000 ML IV SCH (21:00)
[2017-09-16] MEDS ORDERED: IBUPROFEN 600 MG TAB PO PRN (21:00)
[2017-09-16] MEDS ORDERED: HYDROmorphone INJ 0.5 MG/0.5 ML SYR IV ONE (21:15)
[2017-09-17] MEDS: ONDANSETRON INJ 2 MG/ML 2 ML VIAL IV PRN ×2 (00:55→07:58)
--- NOTE | 2017-09-17 02:18 | OPERATIVE REPORT ---
DATE OF OPERATION: 09/16/2017 PREOPERATIVE DIAGNOSES: Acute cholecystitis, cholelithiasis. POSTOPERATIVE DIAGNOSES: Acute cholecystitis, cholelithiasis. PROCEDURE: Laparoscopic cholecystectomy. SURGEON: Katarina Pratt MD. ANESTHESIA: General. ESTIMATED BLOOD LOSS: About 10 mL FINDINGS: Acute cholecystitis with cholelithiasis. COMPLICATIONS: None. INDICATIONS FOR THE PROCEDURE: This is a 27-year-old female who was admitted to hospital for jaundice, acute cholecystitis, and now the jaundice is gone. The patient will require to do laparoscopic cholecystectomy, possible open, possible cholangiogram. I did talk to the patient about the benefit, risk, alternate procedure. I indicated the risks may include but not limited such as bleeding, infection, injury to common bile duct, injury to bowel, may need ERCP. The patient understands. The patient signed informed consent. She agreed to proceed with the procedure. I answered all questions. DETAILS OF PROCEDURE: We brought the patient to the OR, put the patient on the supine position. The patient received SCD on bilateral legs to prevent DVT. Also, the patient received 2 g Ancef IV for prophylactic antibiotics. The patient received general anesthesia without difficulty. The abdomen was properly draped in routine sterile fashion. After time out, I injected the local anesthesia by using 1% lidocaine mixed with 0.5% Marcaine just above umbilical. I then made a small incision just above umbilical, opened fascia, and opened peritoneum under direct vision, put a Maritza trocar and connected to CO2 to create a pneumoperitoneum. Flow rate at 6 L per minute. Pressure not more than 14 mmHg. Once we get a nice pneumoperitoneum, we put a camera in looked around the abdomen, showing normal finding on the stomach, small bowel, large bowel, liver; however, the gallbladder showing significant edema, inflammation, and distended, confirming diagnosis of acute cholecystitis. Then, we put another 3.5 mm trocar on the right upper quadrant. Once all trocar in, we put a grasper to hold the gallbladder, put a direction to the diaphragm, and put another grasper and hold the pouch of the gallbladder, put the latter to explore the triangle of [place]. The cystic duct was identified and mobilized. I put two 5 mm clip on the proximal cystic duct, one on the distal cystic duct. I then used a scissor transection to cystic duct. The cystic artery was identified and mobilized and put two 5 mm metal clips on the proximal cystic artery on one of the distal cystic artery, used a scissor transection to cystic artery with the use of Bovie to take down the gallbladder from the liver of bed without difficulty. Rechecked, no active bleeding and no bile leak. Then we removed the gallbladder through the catch bag then we reinserted Maritza trocar and connected CO2 to create pneumoperitoneum again looked around the abdomen showing no active bleeding, no bile leak from the liver bed. Then we removed all trocars under direct vision. No active bleeding from trocar sites. Pneumoperitoneum was released. Then I closed the umbilical incision, fascial layer by using #1 Vicryl [id number] x2, closed subcutaneous layer by using 2-0 Vicryl interrupted and closed skin by using 4-0 Vicryl, closed another 3.5 mm trocar site skin only by using 4-0 Vicryl. I put the dressing on. The patient tolerated the procedure well. All the instrument, needle, and sponge count correct x2 at the end of case. The patient transferred to recovery room in stable condition. After procedure, I did talk to the patient's about the OR finding and procedure we did, they understood. I also gave patient the postop care instructions before the procedure. They understood. I attest to the content of the Intraoperative Record and any orders documented therein. Any exception s are noted below.
[2017-09-17 03:20] VITALS: BP 138/80; PULSE 84; TEMP 36.4; O2SAT 94
[2017-09-17] MEDS: TRAMADOL HCL 50 MG TAB PO STA ×2 (03:55→04:56)
[2017-09-17] MEDS: MoRPHine SULFATE 4 MG/ML 1 ML CARP\\VIAL IV PRN ×2 (03:57→07:24)
[2017-09-17 07:08] VITALS: BP 159/96; PULSE 97; TEMP 36.9; O2SAT 99
[2017-09-17] MEDS ORDERED: MoRPHine SULFATE 4 MG/ML 1 ML CARP\\VIAL IV ONE (08:00)
[2017-09-17] MEDS ORDERED: NURSING VERBAL MED ORDER ONE ×2 (08:00→12:15)
[2017-09-17 08:07] LABS: HEMATOCRIT 40.2 % (37-47); HEMOGLOBIN 13.9 g/dL (12.0-16.0); MEAN CORPUSCULAR HEMOGLOBIN 30.4 pg (25-34); MEAN CORPUSCULAR HGB CONC 34.6 g/dl (32-36); MEAN PLATELET VOLUME 10.3 fL (7.4-10.4); PLATELET COUNT 242 K/uL (130-400); RED CELL DISTRIBUTION WIDTH CV 11.6 % (11.5-14.5); RED CELL DISTRIBUTION WIDTH SD 37.5 fL (36.4-46.3)
[2017-09-17] MEDS: OXYCODONE/ACETAMINOPHEN 5-325 TAB PO PRN ×2 (08:46→12:08)
[2017-09-17 08:54] LABS: ALBUMIN 3.4 gm/dl (3.4-5.0); CALCIUM 8.8 mg/dl (8.5-10.1); CREATININE 0.65 mg/dl (0.60-1.20); POTASSIUM 4.3 mmol/L (3.5-5.1); TOTAL PROTEIN 7.1 gm/dl (6.4-8.2)
--- NOTE | 2017-09-17 09:38 | Surgery Progress Note ---
Surgery Progress Note Date of Service September 17, 2017. Subjective Post OP Day: 1 (s/p laparoscopic cholecystectomy) Moderate to severe pain. Had tramadol last night which did not help. IV Infiltrated, replaced, now receiving IV morphine + nausea no flatus abdominal bloating ambulated early this morning to help with gas pains Objective Vital Signs: Date Time Temp Pulse Resp B/P (MAP) Pulse Ox O2 Delivery O2 Flow Rate FiO2 09/17/17 07:08 36.9 97 20 159/96 (117) 99 Room Air 09/17/17 03:20 36.4 84 16 138/80 (99) 94 Room Air 09/16/17 23:15 Room Air 09/16/17 22:52 36.5 82 17 128/77 (94) 96 Room Air 09/16/17 21:20 37.0 84 17 132/79 (96) 96 Room Air 09/16/17 20:26 36.9 78 16 109/66 (80) 95 Room Air 09/16/17 19:57 36.9 87 16 117/75 (89) 96 Room Air 09/16/17 19:40 Room Air 09/16/17 19:20 98 Room Air 09/16/17 19:10 138/75 09/16/17 19:07 70 13 95 09/16/17 19:07 69 13 09/16/17 19:06 126/88 09/16/17 19:02 97 16 96 09/16/17 19:02 92 16 09/16/17 19:01 141/82 09/16/17 18:57 72 8 09/16/17 18:57 72 8 98 09/16/17 18:55 36.6 80 16 124/78 (90) 98 Room Air 09/16/17 18:55 124/78 09/16/17 18:52 103 23 98 09/16/17 18:52 104 23 09/16/17 18:51 129/84 09/16/17 18:47 80 16 100 09/16/17 18:47 81 16 09/16/17 18:46 140/84 09/16/17 18:44 89 17 100 09/16/17 18:44 89 17 09/16/17 18:41 136/79 09/16/17 18:39 109 15 09/16/17 18:39 109 15 100 09/16/17 18:35 138/93 09/16/17 18:34 118 21 09/16/17 18:34 118 21 100 09/16/17 18:30 143/85 09/16/17 18:29 36.6 94 12 143/85 95 Oxymask 10 09/16/17 18:29 128 13 143/96 100 09/16/17 18:29 127 13 General Appearance: WD/WN, + mild distress Head: normocephalic, atraumatic Neck: trachea midline Respiratory/Chest: no respiratory distress, no accessory muscle use Abdomen: soft, + distended (mild), + tenderness (generalized tenderness appropriate post op but more tender in RUQ with guarding, no peritonitis or rigidity) Incision(s): clean, dry (dressing clean and dry, incisions not inspected) Laboratory Results: Results Past 24 Hours Test 09/17/17 07:15 Range/Units White Blood Count 7.10 4.8-10.8 K/uL Red Blood Count 4.57 4.2-5.4 M/uL Hemoglobin 13.9 12.0-16.0 g/dL Hematocrit 40.2 37-47 % Mean Corpuscular Volume 88.0 80-100 fL Mean Corpuscular Hemoglobin 30.4 25-34 pg Mean Corpuscular Hemoglobin Concent 34.6 32-36 g/dl RDW Standard Deviation 37.5 36.4-46.3 fL RDW Coefficient of Variation 11.6 11.5-14.5 % Platelet Count 242 130-400 K/uL Mean Platelet Volume 10.3 7.4-10.4 fL Sodium Level 137 136-145 mmol/L Potassium Level 4.3 3.5-5.1 mmol/L Chloride Level 104 98-107 mmol/L Carbon Dioxide Level 24 21-32 mmol/L Anion Gap 9.0 3-11 mmol/L Blood Urea Nitrogen 5 7-18 mg/dl Creatinine 0.65 0.60-1.20 mg/dl Est Creatinine Clear Calc Drug Dose 128.5 ml/min Estimated GFR () 139.1 Estimated GFR (Non- 120.0 BUN/Creatinine Ratio 8.0 10-20 Random Glucose 92 70-99 mg/dl Calcium Level 8.8 8.5-10.1 mg/dl Total Bilirubin 5.9 0.2-1 mg/dl Direct Bilirubin 4.3 0-0.2 mg/dl Aspartate Amino Transf (AST/SGOT) 127 15-37 U/L Alanine Aminotransferase (ALT/SGPT) 179 12-78 U/L Alkaline Phosphatase 104 45-117 U/L Total Protein 7.1 6.4-8.2 gm/dl Albumin 3.4 3.4-5.0 gm/dl Assessment & Plan POD # 1 s/p laparoscopic cholecystectomy - vitals stable, afebrile - increasing RUQ abdominal pain, similar to prior to OR when passing stone - + nausea - increase in t. bili, d. bili, AST, and ALT. Plan: Continue current pain management, added po percocet prn continue IV fluids and IV antibiotics Continue IV Zofran as needed OOB to chair and ambulation May need GI eval further for ERCP given increase in T. bili and LFTS (possible retained CBD stone) Dr. Pratt has seen and examined patient, agrees with above
--- NOTE | 2017-09-17 10:06 | Gastroenterology Progress Note ---
Progress Note Date of Service: September 17, 2017 Subjective Pt evaluation today including: conversation w/ patient, physical exam, chart review, lab review, review of studies, review of inpatient medication list Ms. Morales is a 27 yr old female admitted with abdominal pain. US 09/15 with small gallstones and sludge along the posterior wall of the gallbladder, no wall thickening, no pericholecystic fluid and no biliary ductal dilation. MRCP 09/15 Cholelithiasis without evidence of acute cholecystitis. Normal common bile duct without evidence of intrahepatic biliary ductal dilation or biliary tree filling defects. LFTS elevated: today lower than at the time of admission but higher than yesterday. T bili 8.8 -> 3.5 -> 5.9 D Bili 6.1 -> 1.9 -> 4.3. AST 158->94 ->127 ALT 225 -> 156 -> 179 Alk Phos w/o significant elevation. Had deep epigastric colicky pain on arrival, underwent surgery yesterday and had a "different pain from surgery" until about midnight last night. [place] well again until 6AM this morning when she began with "the same pain," that she had prior to the surgery. Pain is "excruciating." She is awake, alert, oriented, w/ o tachycardia or leukocytosis and requests ERCP XAVIER. Review of Systems Constitutional: No fever Respiratory: No cough Cardiac: No chest pain Abdomen: + pain (deep epigastric pain) Female : No dysuria Neuro: No memory loss Psych: No depression symptoms Heme: No abnormal bleeding/bruising Endo: No fatigue Skin: No itch Medications Current Inpatient Medications Medications (Trade) Dose Ordered Sig/Gage Route Start Time Stop Time Status Last Admin Dose Admin Acetaminophen (Tylenol Tab) 650 mg Q4H PRN PO 09/15/17 16:30 10/15/17 16:29 Al Hydrox/Mg Hydrox/Simethicone (Maalox Max Susp) 15 ml Q4H PRN PO 09/15/17 16:30 10/15/17 16:29 Magnesium Hydroxide (Milk Of Magnesia Susp) 30 ml Q6H PRN PO 09/15/17 16:30 10/15/17 16:29 Polyethylene (Miralax Powder Packet) 17 gm DAILY PRN PO 09/15/17 16:30 10/15/17 16:29 Ondansetron HCl (Zofran Inj) 4 mg Q6H PRN IV 09/15/17 16:30 10/15/17 16:29 09/17/17 07:58 4 MG Morphine Sulfate (MoRPHine SULFATE INJ) 2 mg Q3H PRN IV 09/15/17 16:30 09/29/17 16:29 09/17/17 07:24 2 MG Oxycodone/ Acetaminophen (Percocet 5-325mg Tab) 1 tab Q4H PRN PO 09/17/17 07:30 10/01/17 07:29 Oxycodone/ Acetaminophen (Percocet 5-325mg Tab) 2 tab Q4H PRN PO 09/17/17 07:30 10/01/17 07:29 09/17/17 08:46 2 TAB Objective Vital Signs Date Time Temp Pulse Resp B/P (MAP) Pulse Ox O2 Delivery O2 Flow Rate FiO2 09/17/17 07:08 36.9 97 20 159/96 (117) 99 Room Air 09/17/17 03:20 36.4 84 16 138/80 (99) 94 Room Air 09/16/17 23:15 Room Air 09/16/17 22:52 36.5 82 17 128/77 (94) 96 Room Air 09/16/17 21:20 37.0 84 17 132/79 (96) 96 Room Air 09/16/17 20:26 36.9 78 16 109/66 (80) 95 Room Air 09/16/17 19:57 36.9 87 16 117/75 (89) 96 Room Air 09/16/17 19:40 Room Air 09/16/17 19:20 98 Room Air 09/16/17 19:10 138/75 09/16/17 19:07 70 13 95 09/16/17 19:07 69 13 09/16/17 19:06 126/88 09/16/17 19:02 97 16 96 09/16/17 19:02 92 16 09/16/17 19:01 141/82 09/16/17 18:57 72 8 09/16/17 18:57 72 8 98 09/16/17 18:55 36.6 80 16 124/78 (90) 98 Room Air 09/16/17 18:55 124/78 09/16/17 18:52 103 23 98 09/16/17 18:52 104 23 09/16/17 18:51 129/84 09/16/17 18:47 80 16 100 09/16/17 18:47 81 16 09/16/17 18:46 140/84 09/16/17 18:44 89 17 100 09/16/17 18:44 89 17 09/16/17 18:41 136/79 09/16/17 18:39 109 15 09/16/17 18:39 109 15 100 09/16/17 18:35 138/93 09/16/17 18:34 118 21 09/16/17 18:34 118 21 100 09/16/17 18:30 143/85 09/16/17 18:29 36.6 94 12 143/85 95 Oxymask 10 09/16/17 18:29 128 13 143/96 100 09/16/17 18:29 127 13 Physical Exam General Appearance: no apparent distress ENT: pharynx normal Neck: no JVD Respiratory/Chest: lungs clear Cardiovascular: regular rate, rhythm, no JVD, no murmur Abdomen: soft Extremities: no pedal edema Neurologic/Psych: alert, normal mood/affect, oriented x 3 Skin: no jaundice Laboratory Results Last 24 Hours Test 09/17/17 07:15 White Blood Count 7.10 K/uL Red Blood Count 4.57 M/uL Hemoglobin 13.9 g/dL Hematocrit 40.2 % Mean Corpuscular Volume 88.0 fL Mean Corpuscular Hemoglobin 30.4 pg Mean Corpuscular Hemoglobin Concent 34.6 g/dl RDW Standard Deviation 37.5 fL RDW Coefficient of Variation 11.6 % Platelet Count 242 K/uL Mean Platelet Volume 10.3 fL Sodium Level 137 mmol/L Potassium Level 4.3 mmol/L Chloride Level 104 mmol/L Carbon Dioxide Level 24 mmol/L Anion Gap 9.0 mmol/L Blood Urea Nitrogen 5 mg/dl Creatinine 0.65 mg/dl Est Creatinine Clear Calc Drug Dose 128.5 ml/min Estimated GFR () 139.1 Estimated GFR (Non- 120.0 BUN/Creatinine Ratio 8.0 Random Glucose 92 mg/dl Calcium Level 8.8 mg/dl Total Bilirubin 5.9 mg/dl Direct Bilirubin 4.3 mg/dl Aspartate Amino Transf (AST/SGOT) 127 U/L Alanine Aminotransferase (ALT/SGPT) 179 U/L Alkaline Phosphatase 104 U/L Total Protein 7.1 gm/dl Albumin 3.4 gm/dl Assessment and Plan Ms. Morales is a 27 yr old female who underwent lap choley, now with biliary colic type pain and increased LFTs today compared to yesterday, suggestive of choledocholithiasis. Plan: 1. EUS tomorrow afternoon by Dr. Alberts. Then ERCP can follow if bile duct stones are seen. . 2. Clear liquids po today (small amts only). 3. NPO after midnight. 4. Analgesia as needed today. I have seen and examined the patient with EMMA Mcdonnell whose note reflects our findings and plan. Patient had her GB removed. Bump today in LFTs raising concern for stone/debris in duct/papillary stenosis. Plan for EUS tomorrow. Follow LFTs daily. If any evidence of obstruction, will do ERCP same day.
[2017-09-17] MEDS ORDERED: HYDROmorphone INJ 0.5 MG/0.5 ML SYR ONE (10:37)
[2017-09-17] MEDS: HYDROmorphone INJ 0.5 MG/0.5 ML SYR IV PRN ×3 (10:44→23:37)
[2017-09-17 11:26] VITALS: BP 136/85; PULSE 76; TEMP 36.9; O2SAT 97
[2017-09-17 12:03] VITALS: BP 158/94; PULSE 87; O2SAT 100
[2017-09-17] MEDS ORDERED: ACETAMINOPHEN IV 1,000 MG in EMPTY BAG 0 ML IV SCH (12:30)
[2017-09-17] MEDS ORDERED: PROMETHAZINE HCL INJ 12.5 MG in SODIUM CHLORIDE 0.9% 50ML 50 ML IV PRN (13:30)
[2017-09-17] MEDS: KETOROLAC TROMETHAMINE 30 MG/ML VIAL IV PRN ×2 (13:30→19:07)
--- NOTE | 2017-09-17 14:18 | Anesthesiology Progress Note ---
Anesthesia Progress Note Date of Service September 17, 2017. Progress Notes The patient is scheduled for an ERCP tomorrow. She was consented for general anesthesia. She was counseled to remain NPO after midnight except for sips of water with pills.
--- NOTE | 2017-09-17 14:43 | Hospitalist Progress Note ---
Hospitalist Progress Note Date of Service September 17, 2017. (Anastasia Randolph ., ERINC) Subjective Pt evaluation today including: conversation w/ patient, physical exam, chart review, lab review, review of inpatient medication list Pain: 10/10 sharp abdominal pain PO Intake: Only take ice chips and sips, on clear liquid diet Voiding: no voiding problems Patient complains of significantly worsening pain today. She complains of 10/ 10 sharp RUQ and epigastric pain despite receiving morphine and Dilaudid. She reports associated nausea. She states that the pain is now radiating to her back and bilateral flanks. She is currently on a clear liquid diet per GI but has only been able to take in some ice chips and sips with medications. At the time of my exam she also complains of sharp chest pain. Shortly after my visit , I received notification from nursing that the patient had begun vomiting as well. She denies passing any gas or moving her bowels postop. She is urinating without difficult postop. The patient denies fevers, chills, sweats, palpitations, claudication, cough, wheezing, shortness of breath, dysuria, hematuria, urinary retention, paralysis, weakness, numbness and tingling. After my visit, nursing reports Toradol is helping with the pain and N/V have resolved. Additional Comments: See HPI for pertinent positives and negatives. All other systems reviewed and negative. (Anastasia Randolph ., PA-C) Objective Vital Signs Date Time Temp Pulse Resp B/P (MAP) Pulse Ox O2 Delivery O2 Flow Rate FiO2 09/17/17 12:03 87 158/94 (115) 100 Room Air 09/17/17 11:26 36.9 76 16 136/85 (102) 97 Room Air 09/17/17 07:25 Room Air 09/17/17 07:08 36.9 97 20 159/96 (117) 99 Room Air 09/17/17 03:20 36.4 84 16 138/80 (99) 94 Room Air 09/16/17 23:15 Room Air 09/16/17 22:52 36.5 82 17 128/77 (94) 96 Room Air 09/16/17 21:20 37.0 84 17 132/79 (96) 96 Room Air 09/16/17 20:26 36.9 78 16 109/66 (80) 95 Room Air 09/16/17 19:57 36.9 87 16 117/75 (89) 96 Room Air 09/16/17 19:40 Room Air 09/16/17 19:20 98 Room Air 09/16/17 19:10 138/75 09/16/17 19:07 70 13 95 09/16/17 19:07 69 13 09/16/17 19:06 126/88 09/16/17 19:02 97 16 96 09/16/17 19:02 92 16 09/16/17 19:01 141/82 09/16/17 18:57 72 8 09/16/17 18:57 72 8 98 09/16/17 18:55 36.6 80 16 124/78 (90) 98 Room Air 09/16/17 18:55 124/78 09/16/17 18:52 103 23 98 09/16/17 18:52 104 23 09/16/17 18:51 129/84 09/16/17 18:47 80 16 100 09/16/17 18:47 81 16 09/16/17 18:46 140/84 09/16/17 18:44 89 17 100 09/16/17 18:44 89 17 09/16/17 18:41 136/79 09/16/17 18:39 109 15 09/16/17 18:39 109 15 100 09/16/17 18:35 138/93 09/16/17 18:34 118 21 09/16/17 18:34 118 21 100 09/16/17 18:30 143/85 09/16/17 18:29 36.6 94 12 143/85 95 Oxymask 10 09/16/17 18:29 128 13 143/96 100 09/16/17 18:29 127 13 (Anastasia Randolph, PA-C) Physical Exam Notes: General appearance: +Moderate distress secondary to pain. Well-developed, well -nourished Head: Normocephalic, atraumatic Eyes: Normal inspection, PERRL, EOMI ENT: Normal ENT inspection, hearing grossly normal, pharynx normal Neck: Supple, no JVD, trachea midline Respiratory/Chest: Lungs clear to auscultation, normal breath sounds, no respiratory distress Cardiovascular: Regular rate & rhythm, no gallop, no murmur Abdomen/GI: +Diffuse tenderness, most marked in epigastrium and RUQ. Incisions dressed, clean and dry. Normal bowel sounds, soft Extremities/Musculoskeletal: Normal inspection, no calf tenderness, no pedal edema Neurological/Psych: Alert, normal mood/affect, oriented x 3 Skin: Normal color, warm/dry, no rash (Anastasia Randolph ., PA-C) Laboratory Results Last 24 Hours Test 09/17/17 07:15 09/17/17 12:25 White Blood Count 7.10 K/uL Red Blood Count 4.57 M/uL Hemoglobin 13.9 g/dL Hematocrit 40.2 % Mean Corpuscular Volume 88.0 fL Mean Corpuscular Hemoglobin 30.4 pg Mean Corpuscular Hemoglobin Concent 34.6 g/dl RDW Standard Deviation 37.5 fL RDW Coefficient of Variation 11.6 % Platelet Count 242 K/uL Mean Platelet Volume 10.3 fL Sodium Level 137 mmol/L Potassium Level 4.3 mmol/L Chloride Level 104 mmol/L Carbon Dioxide Level 24 mmol/L Anion Gap 9.0 mmol/L Blood Urea Nitrogen 5 mg/dl Creatinine 0.65 mg/dl Est Creatinine Clear Calc Drug Dose 128.5 ml/min Estimated GFR () 139.1 Estimated GFR (Non- 120.0 BUN/Creatinine Ratio 8.0 Random Glucose 92 mg/dl Calcium Level 8.8 mg/dl Total Bilirubin 5.9 mg/dl Direct Bilirubin 4.3 mg/dl Aspartate Amino Transf (AST/SGOT) 127 U/L Alanine Aminotransferase (ALT/SGPT) 179 U/L Alkaline Phosphatase 104 U/L Total Protein 7.1 gm/dl Albumin 3.4 gm/dl Lipase 184 U/L Troponin I < 0.015 ng/ml (Anastasia Randolph ., PA-C) Assessment and Plan 27 y/o female with no significant past medical history who presents with intermittent upper abdominal pain x 6 months, with acute worsening over the last 72 hours with jaundice and nausea. LFTs significantly elevated on admission with total bilirubin of 8.8. Abdominal pain, jaundice--ongoing, worse today compared to yesterday -Admit to med/surg -Gallbladder ultrasound shows small gallbladder stones and sludge. Normal caliber bile ducts -MRCP shows gallstones. No evidence of acute cholecystitis. Normal common bile duct. No intrahepatic biliary duct dilation or biliary tree filling defects. -GI consulted, appreciate recs: ERCP tomorrow with Dr. Alberts. Can place on clear liquid diet (small amounts only). NPO after midnight. Continue pain control. -General surgery consulted, appreciate recs: Continue IV morphine, added Percocet. Continue IVF. OOB to chair, ambulate. May need GI evaluation for ERCP for possible retained CBD stone. -Advanced to clears per GI. NPO after midnight for ERCP tomorrow -Pt not really eating anything, will be NPO tonight. Restart D5NSS at 100 cc/hr -Morphine 2 mg IV q3h prn pain, Dilaudid 0.5 mg IV q2hwa prn, Toradol 30 mg IV q6h prn, Percocet 5/325 mg PO 1-2 tabs q4h prn -Zofran 4 mg IV and promethazine 12.5 mg IV q6h prn nausea -LFTs worse again today. Total bilirubin 5.9 on 09/17, up from 3.5. Direct bilirubin 4.3 on 09/17, up from 1.9. AST/ALT trending up. Continue to trend -Lipase WNL Chest pain--likely radiating from epigastric pain and/or gas pains -Troponin negative -EKG 66 bpm, NSR. TWI in leads V1-V3 DVT prophylaxis -Hold chemical ppx due to surgery yesterday, ERCP tomorrow -SCDs Code Status -Level I, FULL RESUSCITATION STATUS (Anastasia Randolph ., PA-C) Supervising Note Dr. Munguia I performed a history and physical examination on the patient. I reviewed above note and agree with it. I discussed plan with APC and patient. During my face to face encounter with the patient, I answered all of the patient's questions. Despite labs are worsening, patient this afternoon feels significantly better. Patient abd. is soft, no rebound. Will await ERCP in afternoon. (Kevin Munguia M.D.)
[2017-09-17 15:40] VITALS: BP 122/76; PULSE 76; TEMP 36.5; O2SAT 97
[2017-09-17 16:18] LABS: HEMOGLOBIN 13.6 g/dL (12.0-16.0); MEAN CORPUSCULAR HEMOGLOBIN 30.7 pg (25-34); MEAN CORPUSCULAR HGB CONC 34.9 g/dl (32-36); MEAN PLATELET VOLUME 9.3 fL (7.4-10.4); PLATELET COUNT 218 K/uL (130-400); RED CELL DISTRIBUTION WIDTH CV 11.9 % (11.5-14.5); RED CELL DISTRIBUTION WIDTH SD 38.1 fL (36.4-46.3); WHITE BLOOD COUNT 10.97 K/uL (4.8-10.8)
[2017-09-17 17:09] LABS: ALBUMIN 3.3 gm/dl (3.4-5.0); CALCIUM 8.5 mg/dl (8.5-10.1); CREATININE 0.86 mg/dl (0.60-1.20); POTASSIUM 3.6 mmol/L (3.5-5.1); TOTAL PROTEIN 7.1 gm/dl (6.4-8.2)
[2017-09-17] MEDS: D5W AND NSS 1,000 ML IV SCH (19:07)
[2017-09-17 23:30] VITALS: BP 126/75; PULSE 73; TEMP 36.4; O2SAT 98
[2017-09-18] VITALS (12 sets, daily range): BP systolic 117–127; BP diastolic 75–88; PULSE 65–103; TEMP 36.5–37.5; O2SAT 67–100; Ht 162.6 cm; Wt 77.3 kg
[2017-09-18] MEDS ORDERED: NURSING DECISION MEDICATION ORDER SCH (01:00)
[2017-09-18] MEDS: KETOROLAC TROMETHAMINE 30 MG/ML VIAL IV PRN ×2 (01:40→09:02)
[2017-09-18] MEDS: HYDROmorphone INJ 0.5 MG/0.5 ML SYR IV PRN (04:54)
[2017-09-18] MEDS: D5W AND NSS 1,000 ML IV SCH (06:23)
[2017-09-18 07:21] LABS: HEMATOCRIT 38.1 % (37-47); HEMOGLOBIN 13.3 g/dL (12.0-16.0); MEAN CELL VOLUME 88.8 fL (80-100); MEAN CORPUSCULAR HGB CONC 34.9 g/dl (32-36); MEAN PLATELET VOLUME 9.6 fL (7.4-10.4); PLATELET COUNT 240 K/uL (130-400); RED CELL DISTRIBUTION WIDTH SD 38.6 fL (36.4-46.3); WHITE BLOOD COUNT 6.39 K/uL (4.8-10.8)
[2017-09-18 08:18] LABS: ALBUMIN 3.1 gm/dl (3.4-5.0); CALCIUM 8.4 mg/dl (8.5-10.1); CREATININE 0.64 mg/dl (0.60-1.20); POTASSIUM 3.7 mmol/L (3.5-5.1); TOTAL PROTEIN 6.8 gm/dl (6.4-8.2)
[2017-09-18] MEDS ORDERED: OXYC-57 PO (08:26)
--- NOTE | 2017-09-18 08:31 | Consultant Recommendations ---
Sliver Lap Tender Recommendations Date of Service September 18, 2017. Sliver Lap Tender Recommendations No heavy lifting over 20 pounds for 3 weeks No strenuous activity until cleared by surgeon No submerging incisions underwater for 2 weeks (no bathing, swimming, or hot tubs) No driving while taking narcotic pain medication or until you are pain free You may shower. Gently clean incisions with soap and water. Leave steri strips on incisions for 7 days from your surgery and then remove. They may fall off on their own that is okay. Walking and light activity is encouraged to prevent blood clots from forming You will be given prescription for narcotic pain medication. Take as directed. This medication may cause drowsiness and constipation. To combat constipation: -Drink plenty of water daily - Take OTC stool softener daily while taking narcotics - May take gentle laxative and prune juice if needed You may take extra strength Tylenol or Ibuprofen (with meals) as needed for mild pain. While you are still requiring Percocet, take Ibuprofen in between instead of Tylenol as Percocet has Tylenol in it. Follow-up in surgical office in 1-2 weeks, please call office at [phone] to make an appointment.
--- NOTE | 2017-09-18 10:27 | Surgery Progress Note ---
Surgery Progress Note Date of Service September 18, 2017. Subjective Post OP Day: 2 (s/p laparoscopic cholecystectomy) feeling better today compared to yesterday, "felt like I was dying yesterday" has toradol yesterday which seem to control pain better Going for EUS/ERCP today at 1 am Had another episode of epigastric sudden sharp pain last evening no nausea or vomiting Objective Vital Signs: Date Time Temp Pulse Resp B/P (MAP) Pulse Ox O2 Delivery O2 Flow Rate FiO2 09/18/17 09:31 37.5 102 18 121/78 (92) 96 Room Air 09/18/17 07:40 Room Air 09/17/17 23:30 Room Air 09/17/17 23:30 36.4 73 18 126/75 (92) 98 Room Air 09/17/17 15:40 36.5 76 18 122/76 (91) 97 Room Air 09/17/17 15:30 Room Air 09/17/17 12:03 87 158/94 (115) 100 Room Air 09/17/17 11:26 36.9 76 16 136/85 (102) 97 Room Air General Appearance: WD/WN, no apparent distress Head: normocephalic, atraumatic Neck: trachea midline Respiratory/Chest: no respiratory distress, no accessory muscle use Abdomen: non distended, soft, no organomegaly, no pulsatile mass, + tenderness (epigastric pain, incisional pain) Incision(s): clean, dry (dressings clean and dry) Laboratory Results: Results Past 24 Hours Test 09/17/17 12:25 09/17/17 15:55 09/18/17 06:47 09/18/17 08:27 Range/Units Troponin I < 0.015 0-0.045 ng/ml White Blood Count 10.97 6.39 4.8-10.8 K/uL Red Blood Count 4.43 4.29 4.2-5.4 M/uL Hemoglobin 13.6 13.3 12.0-16.0 g/dL Hematocrit 39.0 38.1 37-47 % Mean Corpuscular Volume 88.0 88.8 80-100 fL Mean Corpuscular Hemoglobin 30.7 31.0 25-34 pg Mean Corpuscular Hemoglobin Concent 34.9 34.9 32-36 g/dl RDW Standard Deviation 38.1 38.6 36.4-46.3 fL RDW Coefficient of Variation 11.9 12.0 11.5-14.5 % Platelet Count 218 240 130-400 K/uL Mean Platelet Volume 9.3 9.6 7.4-10.4 fL Sodium Level 134 139 136-145 mmol/L Potassium Level 3.6 3.7 3.5-5.1 mmol/L Chloride Level 103 107 98-107 mmol/L Carbon Dioxide Level 25 24 21-32 mmol/L Anion Gap 6.0 8.0 3-11 mmol/L Blood Urea Nitrogen 6 4 7-18 mg/dl Creatinine 0.86 0.64 0.60-1.20 mg/dl Est Creatinine Clear Calc Drug Dose 97.2 130.6 ml/min Estimated GFR () 105.8 139.8 Estimated GFR (Non- 91.3 120.6 BUN/Creatinine Ratio 7.3 6.3 10-20 Random Glucose 144 119 70-99 mg/dl Calcium Level 8.5 8.4 8.5-10.1 mg/dl Total Bilirubin 7.4 6.9 0.2-1 mg/dl Aspartate Amino Transf (AST/SGOT) 118 97 15-37 U/L Alanine Aminotransferase (ALT/SGPT) 179 165 12-78 U/L Alkaline Phosphatase 111 109 45-117 U/L Total Protein 7.1 6.8 6.4-8.2 gm/dl Albumin 3.3 3.1 3.4-5.0 gm/dl Globulin 3.8 2.5-4.0 gm/dl Albumin/Globulin Ratio 0.9 0.9-2 Direct Bilirubin 5.3 0-0.2 mg/dl Prothrombin Time 10.1 9.0-12.0 SECONDS Prothromb Time International Ratio 1.0 0.9-1.1 Assessment & Plan POD # 2 s/p laparoscopic cholecystectomy - vitals stable, afebrile - increasing RUQ abdominal pain, similar to prior to OR when passing stone - + nausea - increase in t. bili, d. bili, AST, and ALT. probable choledocholithiasis going for EUS/ERCP today Plan: Continue current pain management, added po percocet prn and Toradol has been added continue IV fluids and IV antibiotics Continue IV Zofran as needed OOB to chair and ambulation Discussed discharge instructions with patient Rx for Percocet for discharge to follow-up with surgery in 1-[address] Torrez covering this weekend Dr. Pratt has seen and examined patient, agrees with above
[2017-09-18] MEDS ORDERED: MIDAZOLAM HCL 1 MG/ML 2ML VIAL ONE (11:45)
[2017-09-18] MEDS ORDERED: LIDOCAINE HCL 2% 2 ML VIAL (20MG/ML) ONE (11:46)
[2017-09-18] MEDS ORDERED: PROPOFOL IV EMULSION 10 MG/ML 20 ML VIAL ONE (11:46)
[2017-09-18] MEDS ORDERED: FENTANYL CITRATE INJ 50 MCG/1 ML 2 ML VIAL ONE ×2 (11:46→12:50)
--- NOTE | 2017-09-18 11:53 | Hospitalist Progress Note ---
Hospitalist Progress Note Date of Service September 18, 2017. (Anastasia Randolph ., ERINC) Subjective Pt evaluation today including: conversation w/ patient, physical exam, chart review, lab review, review of inpatient medication list Pain: 6/10 sharp epigastric pain PO Intake: NPO Voiding: no voiding problems Patient reports feeling better today and states the Toradol has been very helpful for her pain. She states that she was up and about more this morning as she was feeling better, but now the pain is starting to increase. She currently complains of a 6/10 sharp pain mostly in her epigastrium and somewhat in her RUQ. She does report some nausea but denies vomiting today. She has not had any more chest pain. She continues to have dark colored urine but denies dysuria. The patient denies fevers, chills, sweats, chest pain, palpitations, claudication, cough, wheezing, shortness of breath, vomiting, dysuria, hematuria, urinary retention, paralysis, weakness, numbness and tingling. Additional Comments: See HPI for pertinent positives and negatives. All other systems reviewed and negative. (Anastasia Randolph ., ALEXANDREA-C) Objective Vital Signs Date Time Temp Pulse Resp B/P (MAP) Pulse Ox O2 Delivery O2 Flow Rate FiO2 09/18/17 09:31 37.5 102 18 121/78 (92) 96 Room Air 09/18/17 07:40 Room Air 09/17/17 23:30 Room Air 09/17/17 23:30 36.4 73 18 126/75 (92) 98 Room Air 09/17/17 15:40 36.5 76 18 122/76 (91) 97 Room Air 09/17/17 15:30 Room Air 09/17/17 12:03 87 158/94 (115) 100 Room Air (Anastasia Randolph PA-C) Physical Exam Notes: General appearance: Well-developed, well-nourished, no apparent distress Head: Normocephalic, atraumatic Eyes: Normal inspection, PERRL, EOMI ENT: Normal ENT inspection, hearing grossly normal, pharynx normal Neck: Supple, no JVD, trachea midline Respiratory/Chest: Lungs clear to auscultation, normal breath sounds, no respiratory distress Cardiovascular: Regular rate & rhythm, no gallop, no murmur Abdomen/GI: +Epigastrium, RUQ TTP. Incisions dressed, clean and dry. Normal bowel sounds, soft Extremities/Musculoskeletal: Normal inspection, no calf tenderness, no pedal edema Neurological/Psych: Alert, normal mood/affect, oriented x 3 Skin: Normal color, warm/dry, no rash (Anastasia Randolph, JAIRON) Laboratory Results Last 24 Hours Test 09/17/17 12:25 09/17/17 15:55 09/18/17 06:47 09/18/17 08:27 Troponin I < 0.015 ng/ml White Blood Count 10.97 K/uL 6.39 K/uL Red Blood Count 4.43 M/uL 4.29 M/uL Hemoglobin 13.6 g/dL 13.3 g/dL Hematocrit 39.0 % 38.1 % Mean Corpuscular Volume 88.0 fL 88.8 fL Mean Corpuscular Hemoglobin 30.7 pg 31.0 pg Mean Corpuscular Hemoglobin Concent 34.9 g/dl 34.9 g/dl RDW Standard Deviation 38.1 fL 38.6 fL RDW Coefficient of Variation 11.9 % 12.0 % Platelet Count 218 K/uL 240 K/uL Mean Platelet Volume 9.3 fL 9.6 fL Sodium Level 134 mmol/L 139 mmol/L Potassium Level 3.6 mmol/L 3.7 mmol/L Chloride Level 103 mmol/L 107 mmol/L Carbon Dioxide Level 25 mmol/L 24 mmol/L Anion Gap 6.0 mmol/L 8.0 mmol/L Blood Urea Nitrogen 6 mg/dl 4 mg/dl Creatinine 0.86 mg/dl 0.64 mg/dl Est Creatinine Clear Calc Drug Dose 97.2 ml/min 130.6 ml/min Estimated GFR () 105.8 139.8 Estimated GFR (Non- 91.3 120.6 BUN/Creatinine Ratio 7.3 6.3 Random Glucose 144 mg/dl 119 mg/dl Calcium Level 8.5 mg/dl 8.4 mg/dl Total Bilirubin 7.4 mg/dl 6.9 mg/dl Aspartate Amino Transf (AST/SGOT) 118 U/L 97 U/L Alanine Aminotransferase (ALT/SGPT) 179 U/L 165 U/L Alkaline Phosphatase 111 U/L 109 U/L Total Protein 7.1 gm/dl 6.8 gm/dl Albumin 3.3 gm/dl 3.1 gm/dl Globulin 3.8 gm/dl Albumin/Globulin Ratio 0.9 Direct Bilirubin 5.3 mg/dl Prothrombin Time 10.1 SECONDS Prothromb Time International Ratio 1.0 (Anastasia Randolph ., JAIRON) Assessment and Plan 27 y/o female with no significant past medical history who presents with intermittent upper abdominal pain x 6 months, with acute worsening over the last 72 hours with jaundice and nausea. LFTs significantly elevated on admission with total bilirubin of 8.8. Abdominal pain, jaundice--ongoing. Pain better controlled but LFTs worsening -Admit to med/surg -Gallbladder ultrasound shows small gallbladder stones and sludge. Normal caliber bile ducts -MRCP shows gallstones. No evidence of acute cholecystitis. Normal common bile duct. No intrahepatic biliary duct dilation or biliary tree filling defects. -GI consulted, appreciate recs: Plan for ERCP today. -General surgery consulted, appreciate recs: Continue IVF, pain management, and Zofran. OOB to chair and ambulation. Discussed surgical discharge instructions and provided Rx for Percocet for discharge. F/u with surgery in 1- 2 weeks. -NPO for ERCP today -D5NSS at 100 cc/hr -Morphine 2 mg IV q3h prn pain, Dilaudid 0.5 mg IV q2hwa prn, Toradol 30 mg IV q6h prn, Percocet 5/325 mg PO 1-2 tabs q4h prn -Zofran 4 mg IV and promethazine 12.5 mg IV q6h prn nausea -Total bilirubin 6.9 on 09/18, up from 5.9. Direct bilirubin 5.3 on 09/18, up from 4.3. AST and ALT trending down -Lipase WNL Chest pain--resolved -Troponin negative -EKG 66 bpm, NSR. TWI in leads V1-V3 DVT prophylaxis -Hold chemical ppx due to ERCP today -SCDs Code Status -Level I, FULL RESUSCITATION STATUS (Anastasia Randolph .JAIRON) Supervising Note Dr. Munguia I performed a history and physical examination on the patient. I reviewed above note and agree with it. I discussed plan with APC and patient. During my face to face encounter with the patient, I answered all of the patient's questions. Pain is better controlled. Abd. pain has improved. No signs of peritonitis. (Kevin Munguia M.D.)
[2017-09-18] MEDS ORDERED: ROCURONIUM BROMIDE 10 MG/ML 5 ML VIAL ONE (12:06)
--- NOTE | 2017-09-18 12:18 | Endo History and Physical ---
History & Physical Date of Service: September 18, 2017. Chief Complaint: Jaundice Referring Physician: History of Present Illness patient s/p cholecystectomy with persistent jaundice and pain. For EUS/ERCP today for a suspected CBD stone. Past Surgical History Hx Cardiac Surgery: No Hx Abdominal Surgery: No Hx Post-Op Nausea and Vomiting: No Hx Cancer Surgery: No Hx Thoracic Surgery: No Hx Orthopedic: No Hx Urinary Tract Surgery: No Social History Smoking Status: Never Smoker Smokeless Tobacco Use: No Hx Substance Use: No Hx Alcohol Use: No Allergies Coded Allergies: No Known Allergies (Unverified , 09/15/17) Current Medications Reported Home Medications Medications Dose Route/Sig Max Daily Dose Days Date Category Percocet 5MG/325MG (Oxycodone/Acetaminophen) Tab 1 Tablet PO Q4H PRN 09/18/17 Rx Control Pills (Miscellaneous) Tab 1 Tab PO DAILY 09/15/17 Reported Vital Signs Weight (Kilograms): 77.300 Height (Feet): 5 Height (Inches): 4.00 Date Time Temp Pulse Resp B/P (MAP) Pulse Ox O2 Delivery O2 Flow Rate FiO2 09/18/17 12:04 37.1 84 18 142/90 (107) 97 Room Air 09/18/17 09:31 37.5 102 18 121/78 (92) 96 Room Air 09/18/17 07:40 Room Air 09/17/17 23:30 Room Air 09/17/17 23:30 36.4 73 18 126/75 (92) 98 Room Air 09/17/17 15:40 36.5 76 18 122/76 (91) 97 Room Air 09/17/17 15:30 Room Air Physical Exam General Appearance: no apparent distress Respiratory/Chest: Auscultation: breath sounds normal Cardiovascular: Heart Auscultation: RRR Abdomen: Inspection & Palpation: soft, RUQ tenderness Assessment and Plan EGD/ EUS / ERCP to for a suspected CBD stone. We have discussed the risks to include bleeding, infection, perforation, pain, pancreatitis, and a failed biliary cannulation. Plan EGD/EUS ERCP pending results of EUS pre-op / intra-op LR (1 liter) Intraop Indocin 100 mg NE
[2017-09-18] MEDS ORDERED: ATROPINE SULFATE 0.1 MG/ML 5ML SYR IV PRN (12:30)
[2017-09-18] MEDS ORDERED: EpHEDrine SULFATE INJ 50 MG/ML AMP IV PRN (12:30)
[2017-09-18] MEDS ORDERED: FENTANYL CITRATE INJ 50 MCG/1 ML 2 ML VIAL IV PRN (12:30)
[2017-09-18] MEDS ORDERED: INDOMETHACIN 50 MG SUPP PR ONE (12:30)
[2017-09-18] MEDS ORDERED: LACTATED RINGER'S 1000ML 1,000 ML IV SCH ×3 (12:30→14:30)
[2017-09-18] MEDS ORDERED: ONDANSETRON INJ 2 MG/ML 2 ML VIAL IV PRN (12:30)
[2017-09-18] MEDS ORDERED: DEXAMETHASONE SOD INJ 4 MG/ML VIAL ONE (12:44)
[2017-09-18] MEDS ORDERED: ONDANSETRON INJ 2 MG/ML 2 ML VIAL ONE (12:44)
--- NOTE | 2017-09-18 12:44 | GI REPORT ---
Patient Name: Taylor Morales Procedure Date: 09/18/2017 12:23 PM Date of : 1990 Admit Type: Inpatient Age: 27 Gender: Female Attending MD: Gen Alberts DO Procedure: Upper GI endoscopy Providers: Gen Alberts DO Referring MD: Kevin Munguia M.d., hRonda Horvath Md, Stephanie Mendiola Indications: Epigastric abdominal pain Medicines: General Anesthesia Complications: No immediate complications. Estimated blood loss: Minimal. Estimated Blood Loss: Estimated blood loss was minimal. Procedure: Pre-Anesthesia Assessment: - Prior to the procedure, a History and Physical was performed, and patient medications, allergies and sensitivities were reviewed. The patient's tolerance of previous anesthesia was reviewed. - The risks and benefits of the procedure and the sedation options and risks were discussed with the patient. All questions were answered and informed consent was obtained. - Patient identification and proposed procedure were verified prior to the procedure by the physician, the nurse and the pure pak machine operator. The procedure was verified in the procedure room. - Pre-procedure physical examination revealed no contraindications to sedation. - ASA Grade Assessment: II - A patient with mild systemic disease. - After reviewing the risks and benefits, the patient was deemed in satisfactory condition to undergo the procedure. - The anesthesia plan was to use general anesthesia. - Immediately prior to administration of medications, the patient was re-assessed for adequacy to receive sedatives. - The heart rate, respiratory rate, oxygen saturations, blood pressure, adequacy of pulmonary ventilation, and response to care were monitored throughout the procedure. - The physical status of the patient was re-assessed after the procedure. After obtaining informed consent, the endoscope was passed under direct vision. Throughout the procedure, the patient's blood pressure, pulse, and oxygen saturations were monitored continuously. The scope was introduced through the mouth, and advanced to the third part of duodenum. The upper GI endoscopy was accomplished without difficulty. The patient tolerated the procedure well. Findings: The examined esophagus was normal. The entire examined stomach was normal. Patchy mild inflammation characterized by erythema, granularity and aphthous ulcerations was found in the duodenal bulb and in the second part of the duodenum. Impression: - Normal esophagus. - Normal stomach. - Duodenitis (likely related to recent admission for cholecystitis). - No specimens collected. Recommendation: - Perform an upper endoscopic ultrasound (UEUS) today. - Use Prilosec (omeprazole) 20 mg PO daily for 3 months. Gen Alberts D.O. Gen Alberts, 09/18/2017 12:44:04 PM This report has been signed electronically. Note Initiated On: 09/18/2017 12:23 PM Number of Addenda: 0 I attest to the content of the Intraoperative Record and orders documented therein, exceptions below {[id number]}
[2017-09-18] MEDS ORDERED: GLYCOPYRROLATE INJ 0.2 MG/ML VIAL ONE ×2 (12:49)
[2017-09-18] MEDS ORDERED: NEOSTIGMINE METHYLSULFATE 5 MG/5 ML SYR ONE (12:49)
--- NOTE | 2017-09-18 12:54 | GI REPORT ---
Patient Name: Taylor Morales Procedure Date: 09/18/2017 12:28 PM Date of : 1990 Admit Type: Inpatient Age: 27 Gender: Female Attending MD: Gen Alberts DO Procedure: Upper EUS Providers: Gen Alberts DO Referring MD: Rhonda Horvath Md, Stephanie Mendiola, Kevin Munguia M.d. Indications: Abnormal liver function test, Suspected choledocholithiasis, Epigastric abdominal pain Medicines: General Anesthesia Complications: No immediate complications. Estimated blood loss: Minimal. Estimated Blood Loss: Estimated blood loss was minimal. Procedure: Pre-Anesthesia Assessment: - Prior to the procedure, a History and Physical was performed, and patient medications, allergies and sensitivities were reviewed. The patient's tolerance of previous anesthesia was reviewed. - The risks and benefits of the procedure and the sedation options and risks were discussed with the patient. All questions were answered and informed consent was obtained. - Patient identification and proposed procedure were verified prior to the procedure by the physician, the nurse and the software development leader. The procedure was verified in the procedure room. - Pre-procedure physical examination revealed no contraindications to sedation. - ASA Grade Assessment: II - A patient with mild systemic disease. - After reviewing the risks and benefits, the patient was deemed in satisfactory condition to undergo the procedure. - The anesthesia plan was to use general anesthesia. - Immediately prior to administration of medications, the patient was re-assessed for adequacy to receive sedatives. - The heart rate, respiratory rate, oxygen saturations, blood pressure, adequacy of pulmonary ventilation, and response to care were monitored throughout the procedure. - The physical status of the patient was re-assessed after the procedure. After obtaining informed consent, the endoscope was passed under direct vision. Throughout the procedure, the patient's blood pressure, pulse, and oxygen saturations were monitored continuously. The Scope was introduced through the mouth, and advanced to the second part of duodenum. The upper EUS was accomplished without difficulty. The patient tolerated the procedure well. Findings: Endosonographic Finding : There was no sign of significant endosonographic abnormality in the ampulla. No masses were identified. Evidence of a previous cholecystectomy was identified endosonographically. One stone was visualized endosonographically in the common bile duct. The stone measured 3 mm in greatest dimension. It was hyperechoic and characterized by shadowing. The CBD was 4 mm in diameter. There was no sign of significant endosonographic abnormality in the entire pancreas. No masses, no cysts, no calcifications, the pancreatic duct was thin in caliber. The PD was 2 mm in the pancreatic head. No lymphadenopathy seen. There was no sign of significant endosonographic abnormality in the left adrenal gland. No adrenal gland enlargement was identified. There was no sign of significant endosonographic abnormality in the liver. No focal pathology and no masses were identified. Impression: - There was no sign of significant pathology in the ampulla. - Evidence of a cholecystectomy. - One stone was visualized endosonographically in the common bile duct. - There was no sign of significant pathology in the entire pancreas. - Endosonographic images of the left adrenal gland were unremarkable. - There was no evidence of significant pathology in the liver. - No specimens collected. Recommendation: - Perform an ERCP today. Gen Alberts D.O. Gen Alberts, 09/18/2017 12:54:17 PM This report has been signed electronically. Note Initiated On: 09/18/2017 12:28 PM Number of Addenda: 0 I attest to the content of the Intraoperative Record and orders documented therein, exceptions below {[id number]}
--- NOTE | 2017-09-18 13:17 | [facility] Post Operative Brief Note ---
Immediate Operative Summary Operative Date September 18, 2017. Pre-Operative Diagnosis Jaundice Post-Operative Diagnosis Common bile duct stones Procedure(s) Performed Esophagogastroduodenoscopy; Upper Endoscopic Ultrasonography; Endoscopic Retrograde Cholangiopancreatogram; Sphincterotomy and Gallstone extraction Surgeon Dr. Gen Alberts Supervisor Public Message Service Surgeon(s) None Estimated Blood Loss 1 mL Findings Consistent with Post-Op Diagnosis Fluids (cc crystalloids) 1200ml Specimens None Drains None Anesthesia Type General Complication(s) none Disposition Accompanied Pt To Recover: no Disposition: Recovery Room / PACU
--- NOTE | 2017-09-18 13:17 | GI REPORT ---
Patient Name: Taylor Morales Procedure Date: 09/18/2017 12:31 PM Date of : 1990 Admit Type: Inpatient Age: 27 Gender: Female Attending MD: Gen Alberts DO Procedure: ERCP Providers: Gen Alberts DO Referring MD: Kevin Munguia M.d., Rhonda Horvath Md, Stephanie Mendiola Indications: Abdominal pain of suspected biliary origin, Jaundice Medicines: General Anesthesia, Indocin 100 mg SD Complications: No immediate complications. Estimated blood loss: Minimal. Estimated Blood Loss: Estimated blood loss was minimal. Procedure: Pre-Anesthesia Assessment: - Prior to the procedure, a History and Physical was performed, and patient medications, allergies and sensitivities were reviewed. The patient's tolerance of previous anesthesia was reviewed. - The risks and benefits of the procedure and the sedation options and risks were discussed with the patient. All questions were answered and informed consent was obtained. - Patient identification and proposed procedure were verified prior to the procedure by the physician, the nurse and the clinical laboratory technologist. The procedure was verified in the procedure room. - Pre-procedure physical examination revealed no contraindications to sedation. - ASA Grade Assessment: II - A patient with mild systemic disease. - After reviewing the risks and benefits, the patient was deemed in satisfactory condition to undergo the procedure. - The anesthesia plan was to use general anesthesia. - Immediately prior to administration of medications, the patient was re-assessed for adequacy to receive sedatives. - The heart rate, respiratory rate, oxygen saturations, blood pressure, adequacy of pulmonary ventilation, and response to care were monitored throughout the procedure. - The physical status of the patient was re-assessed after the procedure. After obtaining informed consent, the scope was passed under direct vision. Throughout the procedure, the patient's blood pressure, pulse, and oxygen saturations were monitored continuously.The ERCP was accomplished without difficulty. The patient tolerated the procedure well. The Scope was introduced through the mouth, and advanced to the duodenum and used to inject contrast into the bile duct. Findings: A floorworker distributor film of the abdomen was obtained. Surgical clips, consistent with previous cholecystectomy, were seen in the area of the right upper quadrant of the abdomen. The esophagus was successfully intubated under direct vision without detailed examination of the pharynx, larynx, and associated structures, and upper GI tract. The upper GI tract was grossly normal. The major papilla was normal. The bile duct was deeply cannulated with the short-nosed traction sphincterotome (Omni 35) and 0.035 in Acrobat 2 guidewire during the first cannulation attempt (PD not cannulated). Contrast was injected. I personally interpreted the bile duct images. Contrast extended to the entire biliary tree. A cholecystectomy had been performed. The lower third of the main bile duct contained filling defect(s) thought to be a stone. The biliary orifice was stenotic. This appeared benign. Biliary sphincterotomy was made with a monofilament short-tip traction sphincterotome using ERBE electrocautery. The sphincterotomy oozed blood for a few minutes (stopped prior to end of procedure). To discover objects, the biliary tree was swept with an 8.5 to 15 mm balloon starting at the bifurcation. Sludge was swept from the duct. Two pale stones were removed. No stones remained on occlusion cholangiogram. The endoscope was withdrawn from the patient. Impression: - Choledocholithiasis was found. Complete removal was accomplished by biliary sphincterotomy and balloon extraction. - The patient has had a cholecystectomy. . - Biliary papillary stenosis, benign. Recommendation: - Avoid aspirin and nonsteroidal anti-inflammatory medicines for 1 week. - Clear liquid diet today. - 1 liter LR given nicolas-opertively, 1 liter LR post-op Gen Alberts D.O. Gen Alberts DO 09/18/2017 1:16:51 PM This report has been signed electronically. Note Initiated On: 09/18/2017 12:31 PM Number of Addenda: 0 I attest to the content of the Intraoperative Record and orders documented therein, exceptions below {[id number]}
--- NOTE | 2017-09-18 13:37 | DIAGNOSTIC IMAGING REPORT ---
ERCP BILIARY DUCTAL CLINICAL HISTORY: Jaundice. Cholelithiasis. COMPARISON STUDY: MRCP dated September 15, 2017 FLUOROSCOPY TIME: 71 seconds. NUMBER OF FLUOROSCOPIC IMAGES: 13 FINDINGS: 13 fluoroscopic spot images are provided for interpretation. The common bile duct was cannulated in a retrograde fashion. There are surgical clips in the region of the gallbladder fossa. A balloon catheter was introduced into the common bile duct and swept multiple times. There was good drainage on the final image. There was no ductal dilatation. IMPRESSION: Fluoroscopic spot images during ERCP. Electronically signed by: Lucius Marino M.D. 09/18/2017 1:35 PM Dictated Date/Time: 09/18/2017 1:34 PM
--- NOTE | 2017-09-18 14:02 | Anesthesiology Progress Note ---
Anesthesia Post Op Note Date & Time September 18, 2017 at 14:02 Vital Signs Pain Intensity: 0 Vital Signs Past 12 Hours Date Time Temp Pulse Resp B/P (MAP) Pulse Ox O2 Delivery O2 Flow Rate FiO2 09/18/17 13:40 80 16 127/82 97 Room Air 09/18/17 13:30 92 27 120/98 97 Room Air 09/18/17 13:20 36.5 112 25 144/100 97 Room Air 09/18/17 12:04 37.1 84 18 142/90 (107) 97 Room Air 09/18/17 09:31 37.5 102 18 121/78 (92) 96 Room Air 09/18/17 07:40 Room Air Notes Mental Status: alert / awake / arousable, participated in evaluation Pt Amnestic to Procedure: Yes Nausea / Vomiting: adequately controlled Pain: adequately controlled Airway Patency, RR, SpO2: stable & adequate BP & HR: stable & adequate Hydration State: stable & adequate Anesthetic Complications: no major complications apparent
--- NOTE | 2017-09-18 14:58 | Progress Note ---
Progress Note Date of Service September 18, 2017. Progress Note The patient underwent upper endoscopy EUS and ERCP this afternoon. We did find several small common bile duct stones during the endoscopic ultrasound. These were removed with ERCP this afternoon. Recomendations: LR 1 liter bolus pre/post procedure LR 125 ml/hour overnight clear liquid diet today Advance diet as tolerated if pain free in am May consider early d/c on Thursday if without evidence of pancreatitis
[2017-09-18] MEDS ORDERED: NURSING VERBAL MED ORDER ONE (15:30)
[2017-09-18] MEDS: OXYCODONE/ACETAMINOPHEN 5-325 TAB PO PRN ×2 (18:12→21:25)
[2017-09-19 03:14] VITALS: BP 127/76; PULSE 73; TEMP 36.9; O2SAT 98
[2017-09-19] MEDS: OXYCODONE/ACETAMINOPHEN 5-325 TAB PO PRN (03:19)
--- NOTE | 2017-09-19 06:26 | Surgery Progress Note ---
Surgery Progress Note Date of Service September 19, 2017. Subjective Post OP Day: 3 + feeling well, + ambulating, + flatus, + pain controlled, + diet (Tolerating clears), No complaints, No bowel movement, No nausea, No vomiting Reports mild sore throat expected from recent EUS Objective Vital Signs: Date Time Temp Pulse Resp B/P (MAP) Pulse Ox O2 Delivery O2 Flow Rate FiO2 09/19/17 03:14 36.9 73 16 127/76 (93) 98 Room Air 09/18/17 22:54 36.6 66 18 125/88 (100) 100 Room Air 09/18/17 20:22 Room Air 09/18/17 19:13 37.0 103 16 122/76 (91) 99 Room Air 09/18/17 18:16 36.5 103 16 127/79 (95) 96 Room Air 09/18/17 18:00 Room Air 09/18/17 17:10 37.1 93 16 117/75 (89) 97 Room Air 09/18/17 16:33 36.6 65 16 124/75 (91) 96 Room Air 09/18/17 15:06 36.5 72 16 123/78 (93) 96 Room Air 09/18/17 14:41 37.0 81 16 121/78 (92) 97 Room Air 09/18/17 14:36 97 Room Air 09/18/17 14:35 97 Room Air 09/18/17 14:20 37.0 85 16 124/79 (94) 97 Room Air 09/18/17 14:00 36.8 68 7 122/73 96 Room Air 09/18/17 13:50 73 16 122/83 96 Room Air 09/18/17 13:40 80 16 127/82 97 Room Air 09/18/17 13:30 92 27 120/98 97 Room Air 09/18/17 13:20 36.5 112 25 144/100 97 Room Air 09/18/17 12:04 37.1 84 18 142/90 (107) 97 Room Air 09/18/17 09:31 37.5 102 18 121/78 (92) 96 Room Air 09/18/17 07:40 Room Air General Appearance: WD/WN, no apparent distress Head: normocephalic, atraumatic Neck: trachea midline Respiratory/Chest: no respiratory distress, no accessory muscle use Abdomen: non distended, soft, no organomegaly, + tenderness (Incisional) Incision(s): clean, dry, intact Laboratory Results: Results Past 24 Hours Test 09/18/17 06:47 09/18/17 08:27 09/19/17 05:59 Range/Units White Blood Count 6.39 4.8-10.8 K/uL Red Blood Count 4.29 4.2-5.4 M/uL Hemoglobin 13.3 12.0-16.0 g/dL Hematocrit 38.1 37-47 % Mean Corpuscular Volume 88.8 80-100 fL Mean Corpuscular Hemoglobin 31.0 25-34 pg Mean Corpuscular Hemoglobin Concent 34.9 32-36 g/dl RDW Standard Deviation 38.6 36.4-46.3 fL RDW Coefficient of Variation 12.0 11.5-14.5 % Platelet Count 240 130-400 K/uL Mean Platelet Volume 9.6 7.4-10.4 fL Sodium Level 139 136-145 mmol/L Potassium Level 3.7 3.5-5.1 mmol/L Chloride Level 107 98-107 mmol/L Carbon Dioxide Level 24 21-32 mmol/L Anion Gap 8.0 3-11 mmol/L Blood Urea Nitrogen 4 7-18 mg/dl Creatinine 0.64 0.60-1.20 mg/dl Est Creatinine Clear Calc Drug Dose 130.6 ml/min Estimated GFR () 139.8 Estimated GFR (Non- 120.6 BUN/Creatinine Ratio 6.3 10-20 Random Glucose 119 70-99 mg/dl Calcium Level 8.4 8.5-10.1 mg/dl Total Bilirubin 6.9 0.2-1 mg/dl Direct Bilirubin 5.3 0-0.2 mg/dl Aspartate Amino Transf (AST/SGOT) 97 15-37 U/L Alanine Aminotransferase (ALT/SGPT) 165 12-78 U/L Alkaline Phosphatase 109 45-117 U/L Total Protein 6.8 6.4-8.2 gm/dl Albumin 3.1 3.4-5.0 gm/dl Prothrombin Time 10.1 9.0-12.0 SECONDS Prothromb Time International Ratio 1.0 0.9-1.1 Assessment & Plan POD #3 s/p lap evonne, POD #1 s/p EUS, ERCP Covering for [facility]. Doing well. Mild incisional tenderness, Abdomen soft, non-distended. Tolerating clears, No N/V. Urinating okay. Full liquids this AM, ADAT. Pain controlled on PO Percocet PRN. okay to D/C from surgical standpoint today if tolerating regular diet. Will discuss findings with Dr. Torrez. Please contact with questions or concerns. as above doing well ok from surgery perspective for d/c instructions given
[2017-09-19 06:52] LABS: HEMATOCRIT 35.8 % (37-47); HEMOGLOBIN 12.5 g/dL (12.0-16.0); MEAN CELL VOLUME 88.6 fL (80-100); MEAN CORPUSCULAR HEMOGLOBIN 30.9 pg (25-34); MEAN CORPUSCULAR HGB CONC 34.9 g/dl (32-36); MEAN PLATELET VOLUME 9.6 fL (7.4-10.4); PLATELET COUNT 222 K/uL (130-400); RED CELL DISTRIBUTION WIDTH CV 11.8 % (11.5-14.5); RED CELL DISTRIBUTION WIDTH SD 38.2 fL (36.4-46.3)
[2017-09-19 07:17] LABS: ALBUMIN 2.9 gm/dl (3.4-5.0); CALCIUM 8.6 mg/dl (8.5-10.1); CREATININE 0.59 mg/dl (0.60-1.20); POTASSIUM 3.8 mmol/L (3.5-5.1)
[2017-09-19 07:22] VITALS: BP 125/76; PULSE 78; TEMP 36.7; O2SAT 97
[2017-09-19 07:22] LABS: TOTAL PROTEIN 6.3 gm/dl (6.4-8.2)
[2017-09-19] MEDS ORDERED: PANTOprazole SOD 40 MG TAB PO SCH (09:00)
[2017-09-19 10:19] VITALS: BP 125/76; PULSE 78; TEMP 36.7; O2SAT 97
--- NOTE | 2017-09-19 10:22 | Discharge Instructions ---
Discharge Instructions Date of Service September 19, 2017. Admission Reason for Admission: Abd Pain, Jaundice Discharge Discharge Diagnosis / Problem: Abd. pain, Jaundice Discharge Goals Goal(s): Decrease discomfort, Improve function Activity Recommendations Activity Limitations: resume your previous activity . Instructions / Follow-Up Instructions / Follow-Up Followup with Gen Surgery within next week F/U with PCP in 1-2 week Current Hospital Diet Patient's current hospital diet: Regular Diet Discharge Diet Recommended Diet: Regular Diet Procedures Procedures Performed: Esophagogastroduodenoscopy; Upper Endoscopic Ultrasonography; Endoscopic Retrograde Cholangiopancreatogram; Sphincterotomy and Gallstone extraction Pending Studies Studies pending at discharge: no Work Instructions Additional Instructions: To whom this may concern, Taylor was admitted to [facility] on 09/15/2017 and underwent surgical procedure on 09/16/2017. She will be restricted to no heavy lifting over 20 pounds for 3 weeks and no strenuous activity for 3 weeks. If you have any questions please call office at [phone] Thank you, Sunitha Sevilla PA-C [facility] Medical Emergencies . Who to Call and When: Medical Emergencies: If at any time you feel your situation is an emergency, please call 911 immediately. . Non-Emergent Contact Non-Emergency issues call your: Primary Care Provider Call Non-Emergent contact if: you have any medication questions . . "Provider Documentation" section prepared by Kevin Munguia. . Passenger T[employer] Builder Recommendations Passenger T[employer] Builder Recommendations: No heavy lifting over 20 pounds for 3 weeks No strenuous activity until cleared by surgeon No submerging incisions underwater for 2 weeks (no bathing, swimming, or hot tubs) No driving while taking narcotic pain medication or until you are pain free You may shower. Gently clean incisions with soap and water. Leave steri strips on incisions for 7 days from your surgery and then remove. They may fall off on their own that is okay. Walking and light activity is encouraged to prevent blood clots from forming You will be given prescription for narcotic pain medication. Take as directed. This medication may cause drowsiness and constipation. To combat constipation: -Drink plenty of water daily - Take OTC stool softener daily while taking narcotics - May take gentle laxative and prune juice if needed You may take extra strength Tylenol or Ibuprofen (with meals) as needed for mild pain. While you are still requiring Percocet, take Ibuprofen in between instead of Tylenol as Percocet has Tylenol in it. Follow-up in surgical office in 1-2 weeks, please call office at [phone] to make an appointment.
--- NOTE | 2017-09-22 11:08 | Discharge Summary ---
Discharge Summary Date of Service September 19, 2017. Discharge Summary Admission Date: September 15, 2017 at 16:27 Discharge Date: September 19, 2017 Discharge Disposition: Home Principal Diagnosis: Cholecystitis sp cholecystectomy Procedures: Operative Date September 18, 2017. Pre-Operative Diagnosis Jaundice Post-Operative Diagnosis Common bile duct stones Procedure(s) Performed Esophagogastroduodenoscopy; Upper Endoscopic Ultrasonography; Endoscopic Retrograde Cholangiopancreatogram; Sphincterotomy and Gallstone extraction DATE OF OPERATION: 09/16/2017 PREOPERATIVE DIAGNOSES: Acute cholecystitis, cholelithiasis. POSTOPERATIVE DIAGNOSES: Acute cholecystitis, cholelithiasis. PROCEDURE: Laparoscopic cholecystectomy. SURGEON: Katarina Pratt MD. Medication Reconciliation New Medications: Oxycodone/Acetaminophen 5MG/325MG (Percocet 5MG/325MG) Tab 1 TABLET PO Q4H PRN for Pain, #18 TAB Continued Medications: Control Pills ( Control Pills) Tab 1 TAB PO DAILY, TAB Discharge Exam Physical Exam Notes: General appearance: Well-developed, well-nourished, no apparent distress Head: Normocephalic, atraumatic Eyes: Normal inspection, PERRL, EOMI ENT: Normal ENT inspection, hearing grossly normal, pharynx normal Neck: Supple, no JVD, trachea midline Respiratory/Chest: Lungs clear to auscultation, normal breath sounds, no respiratory distress Cardiovascular: Regular rate & rhythm, no gallop, no murmur Abdomen/GI: +. Incisions dressed, clean and dry. Normal bowel sounds, soft Extremities/Musculoskeletal: Normal inspection, no calf tenderness, no pedal edema Neurological/Psych: Alert, normal mood/affect, oriented x 3 Skin: Normal color, warm/dry, no rash Review of Systems: Constitutional: No fever, No chills Eyes: No worsening of vision ENT: No hearing loss Respiratory: No cough, No sputum Cardiovascular: No chest pain Abdomen: No pain Musculoskeletal: No joint pain Neurologic: No memory loss Psychiatric: No depression symptoms Endocrine: No fatigue Hematologic / Lymphatic: No abnormal bleeding/bruising Integumentary: No rash Hospital Course 27 y/o female with no significant past medical history who presents with intermittent upper abdominal pain x 6 months, with acute worsening over the last 72 hours with jaundice and nausea. LFTs significantly elevated on admission with total bilirubin of 8.8. Abdominal pain, jaundice--ongoing. Pain better controlled but LFTs worsening -Admit to med/surg -Gallbladder ultrasound shows small gallbladder stones and sludge. Normal caliber bile ducts -MRCP shows gallstones. No evidence of acute cholecystitis. Normal common bile duct. No intrahepatic biliary duct dilation or biliary tree filling defects. -GI consulted, appreciate recs: Plan for ERCP today. -General surgery consulted, appreciate recs: Continue IVF, pain management, and Zofran. OOB to chair and ambulation. Discussed surgical discharge instructions and provided Rx for Percocet for discharge. F/u with surgery in 1- 2 weeks. -NPO for ERCP today -D5NSS at 100 cc/hr -Morphine 2 mg IV q3h prn pain, Dilaudid 0.5 mg IV q2hwa prn, Toradol 30 mg IV q6h prn, Percocet 5/325 mg PO 1-2 tabs q4h prn -Zofran 4 mg IV and promethazine 12.5 mg IV q6h prn nausea -Total bilirubin 6.9 on 09/18, up from 5.9. Direct bilirubin 5.3 on 09/18, up from 4.3. AST and ALT trending down -Lipase WNL -Patients pain improved on day of discharge and she tolerated regular diet. Chest pain--resolved -Troponin negative -EKG 66 bpm, NSR. TWI in leads V1-V3 DVT prophylaxis -Hold chemical ppx due to ERCP today -SCDs Code Status -Level I, FULL RESUSCITATION STATUS Total Time Spent: Greater than 30 minutes This includes examination of the patient, discharge planning, medication reconciliation, and communication with other providers. Discharge Instructions Please refer to the electronic Patient Visit Report (Discharge Instructions) for additional information. Follow-Up as noted in discharge instructions
== END 2017-09-19 10:40 | disposition home or self-care (01) | DRG 419 ==
LOC: C.EDB 12:27 → C.MSN 16:27 → ENRESERV 16:38
PROVIDERS: ADMIT Internal Medicine; ATTEND Internal Medicine Sports Medicine
PROC: 0FT44ZZ Resection of Gallbladder, Percutaneous Endoscopic Approach (ICD-10-PCS; principal; 2017-09-16 13:15)
PROC: BF43ZZZ Ultrasonography of Gallbladder and Bile Ducts (ICD-10-PCS; 2017-09-18)
PROC: 0DJ08ZZ Inspection of Upper Intestinal Tract, Via Natural or Artificial Opening Endoscopic (ICD-10-PCS; 2017-09-18 13:00)
PROC: 0FC98ZZ Extirpation of Matter from Common Bile Duct, Via Natural or Artificial Opening Endoscopic (ICD-10-PCS; 2017-09-18 13:00)
DX: K80.63 Calculus of gallbladder and bile duct with acute cholecystitis with obstruction (principal); R07.89 Other chest pain; K29.80 Duodenitis without bleeding; Z82.49 Family history of ischemic heart disease and other diseases of the circulatory system

== ENCOUNTER → 2017-09-24 | Outpatient (CLI) | payer OTHER ==
[~2017-09-24] MED LIST changes: +BCPILLS PO; +OXYC-57 PO; -PRENTAB26 PO
[2017-09-24 17:19] LABS: ALBUMIN 3.6 gm/dl (3.4-5.0); TOTAL PROTEIN 7.8 gm/dl (6.4-8.2)
== END | disposition home or self-care (01) ==
LOC: C.LABBFT 15:31
PROVIDERS: ATTEND Physician Assistant Medical
DX: K81.0 Acute cholecystitis (principal)

== ENCOUNTER → 2017-12-07 | Outpatient (CLI) | payer OTHER | END | disposition home or self-care (01) | LOC: C.LAB 11:37 | PROVIDERS: ATTEND Nurse Practitioner | DX: R39.9 Unspecified symptoms and signs involving the genitourinary system (principal) ==

== ENCOUNTER → 2017-12-25 | Outpatient (CLI) | payer OTHER | END | disposition home or self-care (01) | LOC: C.LABBFT 14:17 | PROVIDERS: ATTEND Physician Assistant Medical | DX: Z00.00 Encounter for general adult medical examination without abnormal findings (principal) ==

== ENCOUNTER 2019-03-11 07:51 | Inpatient (IN) ==
[2019-03-11] MEDS ORDERED: OXYTOCIN 30 UNITS/500 ML BAG IV PRN ×3 (08:32→14:17)
--- NOTE | 2019-03-11 08:45 | History & Physical Report ---
Date of Service March 11, 2019 Assessment & Plan (1) Supervision of normal intrauterine in multigravida: Admit to L&D. Plan for pitocin. Patient would like epidural prior to AROM. History of Present Illness Chief Complaint: induction of labor for gestational hypertension Primary Care Provider: Gabriella Bocanegra MD 28yo @ 39 0/7 here for IOL for gestational hypertension. also complicated by Rh negative status, rec'd Rhogam at 20w gestation for bleeding, then repeat administration at 32w. She is taking Augmentin for sinus infection, did not yet take today. Otherwise feeling well. + movement. No vaginal bleeding, leaking of fluid. Some contractions. Allergies Allergy/AdvReac Type Severity Reaction Status Date / Time No Known Allergies Allergy Verified 03/10/19 15:18 Home Medications Home Medications Medication Instructions Recorded Confirmed Type amoxicillin-pot clavulanate 125 tab PO Q12 03/10/19 03/11/19 History [Augmentin] vit no.[id number] 1 tab PO DAILY 03/10/19 03/11/19 History [ Vitamin] Patient History Social History Preferred Language: Hungarian Communication Ability: Effective Coater Associate Required: No Beliefs That Will Affect Care: None marital status: Current Living Situation: Spouse and Family current occupational status: employed Other Information That Helps Us Care for You: No Feels Safe at Home: Yes Safety Concerns: Feels Safe At This Time Smoking Status: Never smoker Second Hand Exposure: No ; Hx Alcohol Use: No Hx Substance Use: No Dental Care, Regularly: Yes Physical Activity Frequency: Daily Seatbelt Use: always Sunscreen Use: Yes Review of Systems All systems reviewed & are unremarkable except as noted in HPI & below Physical Exam Constitutional: WD/WN, vitals as above Respiratory: normal respiratory effort, lungs clear to auscultation no respiratory distress Cardiovascular: Rate/Rhythm: regular rate and regular rhythm Gastrointestinal (Abdomen): Inspection/Auscultation: abdomen normal to inspection Percussion/Palpation: abdomen soft; abdomen nontender Gravid. No s/s chorio or abruption. Skin: no rashes, warm and dry Psychiatric: A+Ox3, euthymic affect Results & Data Vital Signs (Past 12 Hours) Vital Signs Temp Pulse Resp BP 03/11/19 08:06 36.4 C L 20 03/11/19 07:57 110 H 148/89 H Monitoring External Monitor FHT Cat 1 Tocodynamometer [place]: occasional ctx
[2019-03-11] MEDS: LACTATED RINGER'S 1,000 ML IV PRN ×2 (09:11→10:51)
[2019-03-11 09:39] LABS: Hematocrit (blood only) 33.8 % (37-47); Hemoglobin 11.4 g/dL (12.0-16.0); Mean Corpuscular Hemoglobin 30.5 pg (25-34); Mean Corpuscular Volume 90.4 fL (80-100); Mean Platelet Volume 9.4 fL (7.4-10.4); Platelet Count 208 K/uL (130-400); RDW Coefficient of Variation 13.4 % (11.5-14.5); RDW Standard Deviation 44.1 fL (36.4-46.3); Red Blood Count 3.74 M/uL (4.2-5.4); White Blood Count 7.57 K/uL (4.8-10.8)
[2019-03-11] MEDS ORDERED: BUPIVACAINE 0.25% 30 ML VIAL ONE (10:10)
[2019-03-11] MEDS ORDERED: fentaNYL 2MCG/ML ROPIV 1.25MG/ML 100 ML BAG EPI ONE (10:10)
[2019-03-11] MEDS ORDERED: fentaNYL citrate 100 MCG/2 ML VIAL ONE ×2 (10:10→10:18)
[2019-03-11] MEDS ORDERED: ePHEDrine sulfate 50 MG/ML AMP ONE (10:10)
[2019-03-11 10:16] LABS: Alanine Aminotransferase 14 U/L (12-78); Albumin Globulin Ratio 0.6 (0.9-2); Albumin Level 2.2 gm/dl (3.4-5.0); Aspartate Aminotransferase 17 U/L (15-37); BUN Creatinine Ratio 9.9 (10-20); Bilirubin,Total 0.4 mg/dl (0.2-1); Blood Urea Nitrogen 5 mg/dl (7-18); Calcium 8.7 mg/dl (8.5-10.1); Carbon Dioxide 25 mmol/L (21-32); Chloride 106 mmol/L (98-107); Creatinine Clr Calc Pharmacy 183.6 ml/min; Est GFR (African American) > 150.0; Est GFR (Non-African American) 130.7; Globulin 3.8 gm/dl (2.5-4.0); Glucose 75 mg/dl (70-99); Mean Corpuscular Hgb Conc 33.7 g/dL (32-36); Potassium 3.9 mmol/L (3.5-5.1); Sodium 136 mmol/L (136-145)
[2019-03-11 10:17] LABS: Alkaline Phosphatase 418 U/L (45-117)
[2019-03-11] MEDS ORDERED: DiphenhydrAMINE HCL 50 MG/ML VIAL IV PRN (11:06)
[2019-03-11] MEDS ORDERED: NALOXONE HCL 0.4 MG/1 ML VIAL/CARP IV PRN (11:06)
[2019-03-11] MEDS ORDERED: ePHEDrine sulfate 50 MG/ML AMP IV PRN (11:06)
[2019-03-11] MEDS ORDERED: PROMETHAZINE HCL 6.25 MG in SODIUM CHLORIDE 0.9% 50 ML IV PRN (11:06)
[2019-03-11] MEDS ORDERED: NALBUPHINE HCL INJ 10 MG/ML AMP IV PRN (11:06)
[2019-03-11] MEDS ORDERED: fentaNYL 2MCG/ML ROPIV 1.25MG/ML 100 ML BAG EPI PRN (11:06)
[2019-03-11] MEDS ORDERED: ONDANSETRON INJ 2 MG/ML 2 ML VIAL IV PRN (11:06)
[2019-03-11] MEDS ORDERED: NALOXONE HCL 1 MG in SODIUM CHLORIDE 0.9% 1000ML 1,000 ML IV PRN (11:06)
--- NOTE | 2019-03-11 11:09 | Anesthesiology Consultation ---
Date of Service March 11, 2019 Assessment & Plan (1) Encounter for pre-operative examination: Chart Review Chart Review: Patient NOT seen in Pre Admission Testing and Acceptable Risk for Labor Epidural Consults Requested none ASA ASA2 Proposed Anesthesia Anesthesia Type: Labor Epidural Risk / Benefits Reviewed With: PT / POA / Parent / Guardian, Accepts Plan and Informed Consent Obtained History Height/Weight Height: 5 ft 4 in Weight: 91.172 kg Allergies Allergy/AdvReac Type Severity Reaction Status Date / Time No Known Allergies Allergy Verified 03/10/19 15:18 Medications Home Medications Medication Instructions Recorded Confirmed Last Taken amoxicillin-pot clavulanate 125 tab PO Q12 03/10/19 03/11/19 03/10/19 20:30 [Augmentin] vit no.[id number] 1 tab PO DAILY 03/10/19 03/11/19 03/10/19 08:00 [ Vitamin] Active Medications Generic Name Dose Route Start Last Admin Trade Name Freq PRN Reason Stop Dose Admin Lactated Ringer's 1,000 mls @ 125 mls/hr 03/11/19 08:32 03/11/19 10:51 Lr IV 03/13/19 08:31 125 mls/hr .Q8H PRN Administration L&D Protocol Protocol Oxytocin 30 units in 500 mls @ 3 mls/hr 03/11/19 08:35 03/11/19 11:00 Pitocin IV 03/13/19 08:34 0.3 units/hr .Q24H PRN 5 mls/hr Labor Induction/Augmentation Titration Protocol 0.18 UNITS/HR NPO Date Last Intake of Fluids: 03/11/19 Time Last Intake of Fluids: 10:00 Date Last Intake of Solids: 03/11/19 Time Last Intake of Solids: 06:00 Past Medical History Medical History History of varicella History of wisdom tooth extraction No significant past medical history Exercise / Class Metabolic Activity II 4-5 Yardwork/Stairs/Walk up hill Past Family History Family History Grandmother (Maternal) Breast cancer Past Surgical History Surgical History History of endoscopic retrograde cholangiopancreatography Hx of cholecystectomy Past Anesthesia History No Hx of Anesthesia Complications and No Family Hx of Anesthesia Complications History of PONV No Hx of PONV and No Hx of Motion Sickness Social History Smoking Status: Never smoker Hx Alcohol Use: No Hx Substance Use: No substance use type: does not use Physical Exam Vital Signs Last Vital Signs Temp 36.4 C L 03/11/19 08:06 Pulse 105 H 03/11/19 11:05 Resp 20 03/11/19 10:55 BP 136/72 03/11/19 11:05 Pulse Ox 98 03/11/19 11:02 ENMT Mouth: no dentition abnormality Thyromental Distance: > or= 3.5 Finger Breadths Mallampati Class: II Neck normal visual inspection Respiratory normal respiratory effort Auscultation: lungs clear to auscultation bilaterally Cardiovascular Rate/Rhythm: regular rate and regular rhythm Psychiatric Orientation: alert Testing Laboratory Results 03/11/19 09:24 03/11/19 09:24
--- NOTE | 2019-03-11 13:28 | Labor Progress Brief Note ---
Date of Service March 11, 2019 Subjective Reason For Note: Requested By Patient feels pressure Assessment & Plan (1) Supervision of normal intrauterine in multigravida: (2) Gestational hypertension: bps ok. ready to push. fhts categ 1. Physical Exam Constitutional: WD/WN, vitals as above Genitourinary: Manual OB Exam: + cervical dilation 10 cm, + cervical effacement 100%, + station + 3 and + amniotic fluid (AROM done earlier when about 5cm) clear OB Exam Monitor Tracing: + external FHT monitor used (130 mod variability), + external uterine monitor used (q2), + category I and + normal FHT variability Results & Data Vital Signs (Past 12 Hours) Vital Signs Temp Pulse Resp BP Pulse Ox 03/11/19 13:22 122 H 99 03/11/19 13:19 113 H 91 03/11/19 13:17 101 H 100 03/11/19 13:12 118 H 100 03/11/19 13:07 91 H 98 03/11/19 13:06 95 H 113/60 03/11/19 13:02 96 H 98 03/11/19 12:57 99 H 99 03/11/19 12:56 103 H 122/70 03/11/19 12:52 89 99 03/11/19 12:49 88 94 03/11/19 12:47 100 H 99 03/11/19 12:46 98 H 116/69 03/11/19 12:42 95 H 99 03/11/19 12:37 87 99 03/11/19 12:36 96 H 114/62 03/11/19 12:32 91 H 90 03/11/19 12:31 93 H 114/61 03/11/19 12:27 89 99 03/11/19 12:26 79 92 03/11/19 12:22 88 97 03/11/19 12:19 82 94 03/11/19 12:17 91 H 99 03/11/19 12:16 78 129/72 03/11/19 12:12 81 97 03/11/19 12:10 86 93 03/11/19 12:07 84 98 03/11/19 12:04 83 118/63 03/11/19 12:02 101 H 99 03/11/19 12:01 77 115/60 03/11/19 11:57 77 99 03/11/19 11:56 72 119/59 L 03/11/19 11:53 81 106/50 L 03/11/19 11:52 88 98 03/11/19 11:47 90 98 03/11/19 11:44 101 H 89 L 03/11/19 11:42 85 98 03/11/19 11:37 110 H 98 03/11/19 11:33 103 H 119/71 03/11/19 11:32 86 100 03/11/19 11:28 102 H 118/69 03/11/19 11:27 101 H 98 03/11/19 11:23 105 H 108/60 03/11/19 11:22 106 H 98 03/11/19 11:19 98 H 110/58 L 03/11/19 11:17 100 H 98 03/11/19 11:13 106 H 112/58 L 03/11/19 11:12 98 H 98 03/11/19 11:08 94 H 123/58 L 03/11/19 11:07 92 H 97 03/11/19 11:05 105 H 136/72 03/11/19 11:03 102 H 145/83 H 03/11/19 11:02 87 98 03/11/19 11:01 100 H 141/84 H 03/11/19 10:59 83 143/84 H 03/11/19 10:57 95 H 142/88 H 98 03/11/19 10:55 78 20 141/81 H 03/11/19 10:52 92 H 100 03/11/19 10:47 91 H 100 03/11/19 10:43 81 92 03/11/19 10:42 83 95 03/11/19 10:37 87 98 03/11/19 10:36 85 137/81 03/11/19 09:15 86 130/79 03/11/19 08:06 97.5 F L 20 03/11/19 07:57 110 H 148/89 H
--- NOTE | 2019-03-11 14:12 | Delivery Summary ---
Vaginal Delivery Summary Date of Service March 11, 2019 The patient dilated to complete and pushed to deliver a viable female Apg ars 8 and 9 via over intact perineum. Shoulder dystocia encounter, suprapubic pressure initiated at my request by nursing and anterior shoulder delivered with gentle downward pressure and effective maternal expulsive efforts. McRobert's maneuvers were not adequately performed. After release of mild shoulder dystocia remainder of body delivered with ease and infant was vigorous and crying at . Cord clamped at 30 seconds of life and to maternal abdomen where the cord was then doubly clamped and cut. Placenta delivered spontaneously and intact, three-vessel cord. Hemostasis achieved with dilute pitocin and uterine massage and drainage of the bladder for approximately 300 cc under sterile conditions. Cervix and sulci intact. EBL 300 cc. Mother and baby stable recovery. Circumstances of shoulder dystocia explained to mother and family and demonstrated to patient that suprapubic pressure was used. She verbalized understanding. [facility] Vaginal Delivery Charge Vaginal Delivery Codes: 80818 global code for the antepartum, delivery, and post-
[2019-03-11] MEDS ORDERED: BENZOCAINE 20% AER SPR 82.5 GM CAN EXT PRN (14:17)
[2019-03-11] MEDS ORDERED: ACETAMINOPHEN 325 MG TAB PO PRN (14:17)
[2019-03-11] MEDS ORDERED: HYDROCORTISONE ACETATE 25 MG SUPP PR PRN (14:17)
[2019-03-11] MEDS ORDERED: OXYCODONE/ACETAMINOPHEN 5mg/325mg TAB PO PRN (14:17)
[2019-03-11] MEDS ORDERED: SUPERCREAM 0.870% 15 GM JAR EXT PRN (14:17)
[2019-03-11] MEDS ORDERED: DIPHTHERIA/TETANUS/PERTUSSIS 0.5 ML SYR/VIAL IM ONE (14:17)
[2019-03-11] MEDS ORDERED: OXYTOCIN 20 UNITS in LACTATED RINGER'S 1,000 ML IV SCH (14:30)
[2019-03-11] MEDS ORDERED: LACTATED RINGER'S 1,000 ML IV SCH (14:30)
--- NOTE | 2019-03-11 15:15 | Anesthesia Procedure Note ---
Date of Service March 11, 2019 Anesthesia Post Epidural Note Vital Signs Vital Signs: Temp Pulse Resp BP Pulse Ox 36.8 C 87 20 131/61 85 L 03/11/19 13:49 03/11/19 15:06 03/11/19 14:16 03/11/19 15:06 03/11/19 13:57 Pain Intensity Bilateral Abdomen: Pain Intensity: 0 Notes Mental Status: alert / awake / arousable Nausea / Vomiting: adequately controlled Pain: adequately controlled Airway Patency, RR, SpO2: stable & adequate BP & HR: stable & adequate Hydration State: stable & adequate Neuraxial Anesthesia: was administered and sensory block is resolving Anesthetic Complications: no major complications apparent and Pt Satisfied with anesthetic care Epidural: Removed without complications and With tip intact
[2019-03-11] MEDS: IBUPROFEN 600 MG TAB PO PRN (16:29)
[2019-03-11] MEDS: AMOXICILLIN/CLAVULANATE 875 MG TAB PO SCH (16:56)
[2019-03-11] MEDS ORDERED: AMOXICILLIN/CLAVULANATE 500 MG TAB PO SCH (21:00)
[2019-03-11] MEDS: DOCUSATE SODIUM 100 MG CAP PO SCH (21:16)
--- NOTE | 2019-03-12 07:02 | Obstetrical Progress Note ---
Date of Service March 12, 2019 Assessment & Plan (1) Gestational hypertension: (2) Need for rhogam due to Rh negative mother: (3) Normal vaginal delivery: doing well, ready for d/c home today after baby 24hr. need rhophylac. instructions reviewed. f/u 6 wk pp check. Day #:: 1 Subjective Ambulation: ambulating normally Voiding: no voiding problems Diet Tolerance:: regular diet Lochia:: Small Feeding Type:: breast feeding denies pain issues, feels well Physical Exam Constitutional WD/WN, vitals as above Respiratory normal respiratory effort, lungs clear to auscultation Cardiovascular Rate/Rhythm: regular rate and regular rhythm Gastrointestinal (Abdomen) Percussion/Palpation: abdomen soft; abdomen nontender FF at u, nt Musculoskeletal nt calves Neurologic grossly normal Psychiatric A+Ox3, euthymic affect Results & Data Vital Signs (Past 12 Hours) Vital Signs Temp Pulse Resp BP BP Pulse Ox 03/12/19 04:40 98.2 F 68 16 122/71 97 03/12/19 02:30 98.2 F 03/11/19 23:35 98.1 F 86 18 108/63 98 03/11/19 20:00 97.9 F 88 18 135/76 97
[2019-03-12] MEDS ORDERED: PRENATAL VITAMIN 1 TAB PO SCH (08:00)
[2019-03-12] MEDS: IBUPROFEN 600 MG TAB PO PRN ×2 (08:47→17:33)
[2019-03-12] MEDS: DOCUSATE SODIUM 100 MG CAP PO SCH (08:48)
[2019-03-12] MEDS: AMOXICILLIN/CLAVULANATE 875 MG TAB PO SCH ×2 (08:48→17:32)
== END 2019-03-12 18:11 | disposition home or self-care (01) | DRG 806 ==
LOC: 4S1 07:51 → 4S2 16:22